=== PATIENT | male | born 1960 | race Caucasian/White ===

== ENCOUNTER 2018-07-14 02:50 | Inpatient (IN) | payer MEDICARE, MEDICAID ==
[2018-07-14] MEDS ORDERED: IPRATROPIUM/ALBUTEROL 0.5-2.5 MG/3 ML AMPUL NEB ONE ×3 (02:58)
--- NOTE | 2018-07-14 03:07 | ER Document Report ---
ED Respiratory Problem - General Stated Complaint: RESPIRATORY DISTRESS Time Seen by Provider: 07/14/18 02:58 Notes: Patient is a 58-year-old male that comes to the emergency department for chief complaint of difficulty breathing, he comes by EMS, he was initially in respiratory distress with hypoxia with oxygen saturation of 93% on his home BiPAP and respiratory rate in the 40s, patient states that he has progressively worsened for the past 3 days with cough, feeling feverish. He continues to smoke intermittently, has a history of COPD, not on oxygen during the day. Remaining medical history GERD, anxiety/depression, denies CHF, [place], or diabetes. - Related Data Allergies/Adverse Reactions: No Known Drug Allergies Allergy (Verified 07/14/18 04:13) Past Medical History - General Information source: Patient - Social History Smoking Status: Current Some Day Smoker Frequency of alcohol use: None Drug Abuse: None Lives with: Spouse/Significant other Family History: Reviewed & Not Pertinent Pulmonary Medical History: Reports: Hx COPD GI Medical History: Reports: Hx Gastroesophageal Reflux Disease Psychiatric Medical History: Reports: Hx Anxiety, Hx Depression - Immunizations Hx Diphtheria, Pertussis, Tetanus Vaccination: Yes Review of Systems - Review of Systems Constitutional: No symptoms reported EENT: No symptoms reported Cardiovascular: See HPI Respiratory: See HPI Gastrointestinal: No symptoms reported Genitourinary: No symptoms reported Male Genitourinary: No symptoms reported Musculoskeletal: No symptoms reported Skin: No symptoms reported Hematologic/Lymphatic: No symptoms reported Neurological/Psychological: No symptoms reported Physical Exam - Vital signs Vitals: Resp BP Pulse Ox 26 H 146/92 H 98 07/14/18 02:55 07/14/18 02:55 07/14/18 02:55 - Notes Notes: GENERAL: Alert, anxious. Moderate distress. HEAD: Normocephalic, atraumatic. EYES: Pupils equal, round, and reactive to light. Extraocular movements intact. ENT: Oral mucosa moist, tongue midline. Unremarkable oral pharyngeal exam. NECK: Full range of motion. Supple. Trachea midline. LUNGS: Very decreased breath sounds with poor air movement bilaterally. Respiratory distress with exertional tachypnea. No cough, no rales, no rhonchi noted. Has difficulty completing sentences. HEART: Tachycardia, normal rhythm, no murmur noted ABDOMEN: Soft, non-tender. Non-distended. Bowel sounds present in all 4 quadrants. EXTREMITIES: Moves all 4 extremities spontaneously. No edema, normal radial and dorsalis pedis pulses bilaterally. No cyanosis. BACK: no cervical, thoracic, lumbar midline tenderness. NEUROLOGICAL: Alert and oriented x3. Normal speech. [cranial nerves II through XII grossly intact]. SKIN: Diaphoretic and pale Course - Re-evaluation Re-evalutation: Patient initially with respiratory distress with respiratory rate in the mid 30s , mild tachycardia, patient immediately placed on BiPAP, giving additional DuoNeb treatments, he has already received 2 g of magnesium, 125 mg of Solu- Medrol, and 3 DuoNeb treatments. He was also given 2 mg of Versed to help with anxiety. On BiPAP patient states that he actually feels much improved although he still reports shortness of breath. Dr. Valerio evaluated patient at bedside. 07/14/18 03:05 Patient still has mild tachypnea and accessory muscle use but his tachypnea has improved to 24. He is not hypoxic on BiPAP. Will continue to monitor. Patient reevaluated again, now he is not in any respiratory rate of 20, heart rate is now in the 90s, he does not have any tachypnea or signs of distress. He states he feels very much improved. Chest x-ray with no acute process. CBC unremarkable. Troponin is not elevated. Chemistry generally unremarkable. Venous blood gas showing high oxygen probably because he is receiving oxygen when this was drawn, shows respiratory acidosis with pH of 7.26 and CO2 of greater than 75. Discussed results with patient and relative who is not bedside. Discussed admission to the hospital for COPD exacerbation, respiratory acidosis with hypercarbia. They state agreement. Discussed with Dr. Borges, patient's primary provider, patient will be admitted to telemetry full admission. - Vital Signs Vital signs: Temp Pulse Resp BP Pulse Ox 18 125/92 H 97 07/14/18 06:31 07/14/18 06:31 07/14/18 06:31 - Laboratory Result Diagrams: 07/14/18 02:58 07/14/18 02:58 Laboratory results interpreted by me: 07/14/18 07/14/18 07/14/18 02:58 02:58 02:58 WBC 11.0 H Carbonic Acid 2.28 H ABG pH 7.26 L ABG pCO2 75.7 H* ABG pO2 168.1 H ABG HCO3 33.5 H ABG Total CO2 35.8 H ABG O2 Saturation 98.8 H BUN 6 L Glucose 135 H Critical Care Note - Critical Care Note Total time excluding time spent on procedures (mins): 35 - respiratory distress , hypoxia, acute respiratory failure Comments: Please allow 35 minutes of critical care time for evaluation and treatment of patient with respiratory distress, acute respiratory failure, multiple airway treatments. Time spent with interpretation of laboratory and imaging data, multiple re-evaluations, discussion with patient, significant other, and discussion with hospitalist for admission. Discharge - Discharge Clinical Impression: Acute respiratory distress, Hypoxia, COPD exacerbation Condition: Stable Disposition: ADMITTED INPATIENT Admitting Provider: [facility] Unit Admitted: Telemetry
--- NOTE | 2018-07-14 03:17 | RADIOLOGY REPORT (SQ) ---
EXAM DESCRIPTION: XR CHEST 1 VIEW COMPLETED DATE/TME: 07/14/2018 00:00 CLINICAL HISTORY: RESP DISTRESS COMPARISON: 04/10/2018 FINDINGS: Single frontal view of the chest. The cardiomediastinal silhouette has normal size and contour. Hyperinflation with chronic stable interstitial opacities in the lung bases. No displaced rib fractures identified. Upper abdominal soft tissues are unremarkable. IMPRESSION: 1. No acute pulmonary process identified. 2. Hyperinflation suggests obstructive lung disease.
[2018-07-14 03:22] LABS: ABSOLUTE BASOPHILS # (AUTO) 0.1 10^3/uL (0.0-0.2); ABSOLUTE EOSINOPHILS # (AUTO) 0.3 10^3/uL (0.0-0.6); ABSOLUTE LYMPHOCYTES (AUTO) 2.6 10^3/uL (0.5-4.7); ABSOLUTE NEUT (AUTO) 6.9 10^3/uL (1.7-8.2); BASOPHILS % (AUTO) 0.9 % (0-2); EOSINOPHILS % (AUTO) 3.1 % (0-6); HEMATOCRIT 42.4 % (37.9-51.0); HEMOGLOBIN 14.3 g/dL (13.5-17.0); LYMPHOCYTES % (AUTO) 24.1 % (13-45); MEAN CORPUSCULAR HEMOGLOBIN 31.5 pg (27.0-33.4); MEAN CORPUSCULAR HGB CONC 33.8 g/dL (32.0-36.0); MEAN CORPUSCULAR VOLUME 93 fl (80-97); MONOCYTES % (AUTO) 9.4 % (3-13); PLATELET COUNT 263 10^3/uL (150-450); RED BLOOD COUNT 4.54 10^6/uL (4.35-5.55); RED CELL DISTRIBUTION WIDTH 13.6 % (11.5-14.0); SEGMENTED NEUTROPHILS % (AUTO) 62.5 % (42-78); TOTAL CELLS COUNTED % (AUTO) 100 %
[2018-07-14 03:52] LABS: ARTERIAL BLOOD BASE EXCESS 3.8 mmol/L; ARTERIAL BLOOD FIO2 35%; ARTERIAL BLOOD H2CO3 2.28 mmol/L (1.05-1.35); ARTERIAL BLOOD HCO3 33.5 mmol/L (20-24); ARTERIAL BLOOD O2 SATURATION 98.8 % (94-98); ARTERIAL BLOOD PH 7.26 (7.35-7.45); ARTERIAL BLOOD PO2 168.1 mmHg (80-100); ARTERIAL BLOOD TOTAL CO2 35.8 mmol/L (23-27)
[2018-07-14 03:53] LABS: ARTERIAL BLOOD PCO2 75.7 mmHg (35-45)
[2018-07-14 03:56] LABS: ALANINE AMINOTRANSFERASE 32 U/L (21-72); ALBUMIN 4.2 g/dL (3.5-5.0); ALKALINE PHOSPHATASE 82 U/L (38-126); ANION GAP 10 (5-19); ASPARTATE AMINO TRANSFERASE 27 U/L (17-59); BILIRUBIN,DIRECT 0.3 mg/dL (0.0-0.4); BILIRUBIN,TOTAL 0.4 mg/dL (0.2-1.3); BLOOD UREA NITROGEN 6 mg/dL (7-20); CALCIUM 9.6 mg/dL (8.4-10.2); CARBON DIOXIDE 30 mmol/L (22-30); CHLORIDE 104 mmol/L (98-107); CREATINE KINASE 86 U/L (55-170); GLUCOSE 135 mg/dL (75-110); POTASSIUM 4.2 mmol/L (3.6-5.0); SODIUM 144.3 mmol/L (137-145); TOTAL PROTEIN 7.2 g/dL (6.3-8.2)
[2018-07-14 04:40] LABS: CREATINE KINASE MB 3.29 ng/mL (<4.55)
[2018-07-14 04:45] LABS: TROPONIN I < 0.012 ng/mL
[2018-07-14] MEDS ORDERED: IPRATROPIUM/ALBUTEROL 0.5-2.5 MG/3 ML AMPUL NEB PRN (07:33)
[2018-07-14] MEDS ORDERED: METHYLPREDNISOLONE INJ 125 MG/2 ML SDV IV SCH (07:45)
[2018-07-14 09:51] LABS: INTERNATIONAL RATION (INR) 0.98; PROTHROMBIN TIME 13.5 SEC (11.4-15.4)
[2018-07-14 09:52] LABS: PARTIAL THROMBOPLASTIN TIME 30.5 SEC (23.5-35.8)
[2018-07-14 10:12] LABS: LIPASE 57.7 U/L (23-300); PHOSPHORUS 4.1 mg/dL (2.5-4.5)
[2018-07-14 10:25] LABS: CREATINE KINASE MB 3.61 ng/mL (<4.55)
[2018-07-14 10:27] LABS: FREE T4 (FREE THYROXINE) 1.34 ng/dL (0.78-2.19)
[2018-07-14 10:30] LABS: TROPONIN I < 0.012 ng/mL
[2018-07-14 10:41] LABS: THYROID STIMULATING HORMONE 0.38 uIU/mL (0.47-4.68)
[2018-07-14] MEDS: METHYLPREDNISOLONE INJ 125 MG/2 ML SDV IV SCH ×2 (10:52→17:33)
[2018-07-14] MEDS: ENOXAPARIN SODIUM INJ 40 MG/0.4 ML DISP.SYRIN SUBCUT SCH (10:54)
[2018-07-14 12:41] LABS: ARTERIAL BLOOD BASE EXCESS 5.5 mmol/L; ARTERIAL BLOOD FIO2 35%; ARTERIAL BLOOD H2CO3 1.74 mmol/L (1.05-1.35); ARTERIAL BLOOD HCO3 32.6 mmol/L (20-24); ARTERIAL BLOOD PCO2 57.8 mmHg (35-45); ARTERIAL BLOOD PH 7.37 (7.35-7.45); ARTERIAL BLOOD PO2 114.3 mmHg (80-100); ARTERIAL BLOOD TOTAL CO2 34.4 mmol/L (23-27)
--- NOTE | 2018-07-14 13:48 | EKG REPORT ---
SEVERITY:- ABNORMAL ECG - SINUS TACHYCARDIA RIGHT AXIS DEVIATION BORDERLINE INFERIOR Q WAVES ABNRM R PROG, CONSIDER ASMI OR LEAD PLACEMENT : Confirmed by: José Laurent MD 14-Jul-2018 13:47:50
--- NOTE | 2018-07-14 14:23 | PDOC H&P ---
History of Present Illness Admission Date/PCP: 07/14/18 05:19 BERNARD MEDINA MD History of Present Illness: JUAN RAMON RIOS is a 58 year old male, he has end-stage COPD, on oxygen he came to the emergency room for evaluation of respiratory distress, he was evaluated in the emergency room, treated with noninvasive positive pressure ventilation BiPAP, bronchodilators with DuoNeb the ABG on FiO2 35%, pH 7.2 cc PCO2 75.7 PO2 was 68.1, bicarb 33, consistent with severe respiratory acidosis. Last hospital admission was on 04/06/2018 when he was admitted for COPD with acute exacerbation associated with acute respiratory failure. He also have a history of Hampton's esophagus,he stated he has stopped smoking though from the ER record, it was stated that he still smokes intermittently. Past Medical History Pulmonary Medical History: Reports: Chronic Obstructive Pulmonary Disease (COPD) GI Medical History: Reports: Gastroesophageal Reflux Disease, Other - Hampton's esophagus with dysplasia Psychiatric Medical History: Reports: Depression Social History Lives with: Spouse/Significant other Smoking Status: Current Some Day Smoker - Advance Directive Resuscitation Status: Full Code Family History Family History: Reviewed & Not Pertinent Parental Family History Reviewed: Yes Children Family History Reviewed: Yes Sibling(s) Family History Reviewed.: Yes Medication/Allergy Home Medications: Brexpiprazole [Rexulti] 2 mg PO DAILY 07/14/18 Esomeprazole Magnesium [Nexium] 40 mg PO BID 07/14/18 Fluticasone/Umeclidin/Vilanter [Trelegy 100-62.5-25 Mcg Ellipta 14 Dose/Dpi] 1 inh PO DAILY 07/14/18 Gabapentin [Neurontin 300 mg Capsule] 300 mg PO Q6 07/14/18 Hydroxyzine HCl [Atarax 10 mg Tablet] 10 mg PO Q8HP PRN 07/14/18 Loratadine [Claritin 10 mg Tablet] 10 mg PO DAILY 07/14/18 Pantoprazole Sodium [Protonix] 40 mg PO DAILY 07/14/18 Roflumilast [Daliresp 500 mcg Tablet] 500 mcg PO DAILY 07/14/18 Venlafaxine HCl ER [Effexor Xr 75 mg Cap.sr] 150 mg PO Q12 07/14/18 Allergies/Adverse Reactions: No Known Drug Allergies Allergy (Verified 07/14/18 04:13) Review of Systems Constitutional: PRESENT: fatigue Eyes: ABSENT: visual disturbances Ears: ABSENT: hearing changes Cardiovascular: PRESENT: dyspnea on exertion. ABSENT: as per HPI, chest pain, edema, orthropnea, palpitations, other Respiratory: PRESENT: cough, dyspnea Gastrointestinal: ABSENT: abdominal pain, constipation, diarrhea, hematemesis, hematochezia, nausea, vomiting Genitourinary: ABSENT: dysuria, hematuria Musculoskeletal: ABSENT: joint swelling Integumentary: ABSENT: rash, wounds Neurological: ABSENT: abnormal gait, abnormal speech, confusion, dizziness, focal weakness, syncope Psychiatric: ABSENT: anxiety, depression, homidical ideation, suicidal ideation Endocrine: ABSENT: cold intolerance, heat intolerance, menstrual abnormalities, polydipsia, polyuria Hematologic/Lymphatic: ABSENT: easy bleeding, easy bruising, lymphadenopathy Physical Exam Vital Signs: Temp Pulse Resp BP Pulse Ox 97.5 F 74 16 118/78 98 07/14/18 08:23 07/14/18 13:00 07/14/18 13:00 07/14/18 12:01 07/14/18 13:00 Intake & Output 07/13/18 07/14/18 07/15/18 06:59 06:59 06:59 Weight 68.3 kg General appearance: PRESENT: severe distress Head exam: PRESENT: atraumatic, normocephalic Eye exam: PRESENT: conjunctiva pink, EOMI, PERRLA Ear exam: PRESENT: normal external ear exam Mouth exam: PRESENT: moist, tongue midline Respiratory exam: PRESENT: wheezes Cardiovascular exam: PRESENT: RRR, +S1, +S2 Vascular exam: PRESENT: normal capillary refill GI/Abdominal exam: PRESENT: normal bowel sounds, soft Rectal exam: PRESENT: deferred Neurological exam: PRESENT: alert, awake, oriented to person, oriented to place , oriented to time, oriented to situation, CN II-XII grossly intact Psychiatric exam: PRESENT: appropriate affect, normal mood Skin exam: PRESENT: dry, intact, warm Results Laboratory Results: 07/14/18 07/14/18 07/14/18 09:25 09:25 10:00 Carbonic Acid HCO3/H2CO3 Ratio ABG pH ABG pCO2 ABG pO2 ABG HCO3 ABG O2 Saturation ABG Base Excess FiO2 Phosphorus 4.1 Magnesium 2.6 H Ammonia 29.7 Amylase 55 Lipase 57.7 TSH 0.38 L Free T4 1.34 07/14/18 11:30 Carbonic Acid 1.74 H HCO3/H2CO3 Ratio 18:1 ABG pH 7.37 ABG pCO2 57.8 H ABG pO2 114.3 H ABG HCO3 32.6 H ABG O2 Saturation 98.0 ABG Base Excess 5.5 FiO2 35% Phosphorus Magnesium Ammonia Amylase Lipase TSH Free T4 07/14/18 07/14/18 07/14/18 09:25 09:25 09:25 Creatine Kinase 102 CK-MB (CK-2) 3.61 Troponin I < 0.012 NT-Pro-B Natriuret Pep 52 Impressions: Chest X-Ray 07/14/18 00:00 IMPRESSION: 1. No acute pulmonary process identified. 2. Hyperinflation suggests obstructive lung disease. Assessment & Plan - Diagnosis (1) Acute hypercapnic respiratory failure Is this a current diagnosis for this admission?: Yes Plan: Continue bilevel noninvasive positive pressure ventilation, initial settings in the chart (2) COPD exacerbation Is this a current diagnosis for this admission?: Yes Plan: , Chest x-ray did not show any pneumonia or infiltrates, treated with IV Solu- Medrol, bronchodilators
[2018-07-14 14:44] LABS: CREATINE KINASE MB 4.22 ng/mL (<4.55)
[2018-07-14 14:46] LABS: TROPONIN I < 0.012 ng/mL
[2018-07-14 20:17] LABS: CREATINE KINASE MB 4.31 ng/mL (<4.55)
[2018-07-14 20:19] LABS: TROPONIN I < 0.012 ng/mL
[2018-07-15] MEDS: METHYLPREDNISOLONE INJ 125 MG/2 ML SDV IV SCH ×3 (02:27→17:42)
[2018-07-15 09:24] LABS: ABSOLUTE LYMPHOCYTES (AUTO) 0.9 10^3/uL (0.5-4.7); ABSOLUTE MONOCYTES (AUTO) 0.2 10^3/uL (0.1-1.4); ABSOLUTE NEUT (AUTO) 7.3 10^3/uL (1.7-8.2); BASOPHILS % (AUTO) 0.3 % (0-2); HEMATOCRIT 43.8 % (37.9-51.0); HEMOGLOBIN 14.7 g/dL (13.5-17.0); LYMPHOCYTES % (AUTO) 10.6 % (13-45); MEAN CORPUSCULAR HEMOGLOBIN 31.1 pg (27.0-33.4); MEAN CORPUSCULAR HGB CONC 33.6 g/dL (32.0-36.0); MEAN CORPUSCULAR VOLUME 93 fl (80-97); MONOCYTES % (AUTO) 2.2 % (3-13); PLATELET COUNT 259 10^3/uL (150-450); RED BLOOD COUNT 4.73 10^6/uL (4.35-5.55); RED CELL DISTRIBUTION WIDTH 13.7 % (11.5-14.0); SEGMENTED NEUTROPHILS % (AUTO) 86.9 % (42-78); TOTAL CELLS COUNTED % (AUTO) 100 %; WHITE BLOOD COUNT 8.4 10^3/uL (4.0-10.5)
[2018-07-15 09:30] LABS: ALANINE AMINOTRANSFERASE 27 U/L (21-72); ALBUMIN 3.9 g/dL (3.5-5.0); ALKALINE PHOSPHATASE 69 U/L (38-126); ANION GAP 7 (5-19); ASPARTATE AMINO TRANSFERASE 22 U/L (17-59); BILIRUBIN,DIRECT 0.4 mg/dL (0.0-0.4); BILIRUBIN,TOTAL 0.6 mg/dL (0.2-1.3); BLOOD UREA NITROGEN 15 mg/dL (7-20); CALCIUM 9.9 mg/dL (8.4-10.2); CARBON DIOXIDE 32 mmol/L (22-30); CHLORIDE 102 mmol/L (98-107); CHOLESTEROL 208.01 mg/dL (0-200); DIRECT LDL 116 mg/dL (<100); GLUCOSE 120 mg/dL (75-110); POTASSIUM 5.3 mmol/L (3.6-5.0); SODIUM 141.4 mmol/L (137-145); TOTAL PROTEIN 6.6 g/dL (6.3-8.2); TRIGLYCERIDES 114 mg/dL (<150); VLDL CHOLESTEROL 22.8 mg/dL (10-31)
[2018-07-15] MEDS: ENOXAPARIN SODIUM INJ 40 MG/0.4 ML DISP.SYRIN SUBCUT SCH (10:03)
[2018-07-15] MEDS ORDERED: HYDROXYZINE HCL 10 MG TABLET PO PRN (13:59)
[2018-07-15] MEDS: VENLAFAXINE HCL 75 MG CAP.SR.24H PO ONE ×2 (14:55→14:58)
[2018-07-15] MEDS: LANSOPRAZOLE 30 MG TAB.RAP.DR PO SCH (17:41)
[2018-07-15] MEDS: GABAPENTIN 300 MG CAPSULE PO SCH ×2 (17:41→23:02)
[2018-07-15] MEDS: BREXPIPRAZOLE 2 MG PO SCH (17:50)
--- NOTE | 2018-07-15 22:17 | PDOC PROGRESS REPORT ---
Subjective Progress Note for:: 07/15/18 Subjective:: Patient is seen by the bedside,, he improved somewhat Reason For Visit: ACUTE RESPIRATORY ACIDOSIS DUE TO ACUTE COPD Physical Exam Vital Signs: Temp Pulse Resp BP Pulse Ox 97.4 F 73 16 114/59 L 98 07/15/18 16:00 07/15/18 19:36 07/15/18 20:15 07/15/18 19:36 07/15/18 20:15 Intake & Output 07/14/18 07/15/18 07/16/18 06:59 06:59 06:59 Intake Total 0 50 Output Total 400 1375 Balance -400 -1325 Weight 68.3 kg General appearance: PRESENT: mild distress Eye exam: PRESENT: PERRLA Respiratory exam: PRESENT: wheezes Cardiovascular exam: PRESENT: +S1, +S2 GI/Abdominal exam: PRESENT: soft Neurological exam: PRESENT: alert Results Laboratory Results: 07/15/18 05:31 07/15/18 05:31 07/15/18 07/15/18 05:31 05:31 WBC 8.4 RBC 4.73 Hgb 14.7 Hct 43.8 MCV 93 MCH 31.1 MCHC 33.6 RDW 13.7 Plt Count 259 Seg Neutrophils % 86.9 H Lymphocytes % 10.6 L Monocytes % 2.2 L Eosinophils % 0.0 Basophils % 0.3 Absolute Neutrophils 7.3 Absolute Lymphocytes 0.9 Absolute Monocytes 0.2 Absolute Eosinophils 0.0 Absolute Basophils 0.0 Sodium 141.4 Potassium 5.3 H Chloride 102 Carbon Dioxide 32 H Anion Gap 7 BUN 15 Creatinine 0.67 Est GFR ( Amer) > 60 Est GFR (Non-Af Amer) > 60 Glucose 120 H Calcium 9.9 Total Bilirubin 0.6 AST 22 ALT 27 Alkaline Phosphatase 69 Total Protein 6.6 Albumin 3.9 Triglycerides 114 Cholesterol 208.01 H LDL Cholesterol Direct 116 H VLDL Cholesterol 22.8 HDL Cholesterol 60 07/14/18 07/14/18 07/14/18 09:25 09:25 09:25 Creatine Kinase 102 CK-MB (CK-2) 3.61 Troponin I < 0.012 NT-Pro-B Natriuret Pep 52 07/14/18 07/14/18 07/14/18 13:59 13:59 19:44 Creatine Kinase 108 102 CK-MB (CK-2) 4.22 Troponin I < 0.012 NT-Pro-B Natriuret Pep 07/14/18 19:44 Creatine Kinase CK-MB (CK-2) 4.31 Troponin I < 0.012 NT-Pro-B Natriuret Pep Impressions: Chest X-Ray 07/14/18 00:00 IMPRESSION: 1. No acute pulmonary process identified. 2. Hyperinflation suggests obstructive lung disease. Assessment & Plan - Diagnosis (1) Acute hypercapnic respiratory failure Is this a current diagnosis for this admission?: Yes Plan: Patient continues to require noninvasive positive pressure ventilation (2) COPD exacerbation Is this a current diagnosis for this admission?: Yes Plan: Continue Solu-Medrol, continue bronchodilators
[2018-07-15] MEDS: VENLAFAXINE HCL 75 MG CAP.SR.24H PO SCH (22:38)
[2018-07-15] MEDS: NICOTINE 21 MG/24 HR PATCH.TD24 TD SCH (22:45)
[2018-07-16] MEDS: METHYLPREDNISOLONE INJ 125 MG/2 ML SDV IV SCH ×3 (01:43→17:57)
[2018-07-16 05:13] LABS: ABSOLUTE LYMPHOCYTES (AUTO) 0.7 10^3/uL (0.5-4.7); ABSOLUTE MONOCYTES (AUTO) 0.3 10^3/uL (0.1-1.4); BASOPHILS % (AUTO) 0.1 % (0-2); HEMATOCRIT 40.4 % (37.9-51.0); HEMOGLOBIN 13.8 g/dL (13.5-17.0); LYMPHOCYTES % (AUTO) 8.3 % (13-45); MEAN CORPUSCULAR HEMOGLOBIN 31.5 pg (27.0-33.4); MEAN CORPUSCULAR VOLUME 93 fl (80-97); PLATELET COUNT 285 10^3/uL (150-450); RED BLOOD COUNT 4.37 10^6/uL (4.35-5.55); RED CELL DISTRIBUTION WIDTH 13.6 % (11.5-14.0); SEGMENTED NEUTROPHILS % (AUTO) 88.6 % (42-78); TOTAL CELLS COUNTED % (AUTO) 100 %
[2018-07-16] MEDS: GABAPENTIN 300 MG CAPSULE PO SCH ×3 (05:26→17:55)
[2018-07-16 05:34] LABS: ALANINE AMINOTRANSFERASE 20 U/L (21-72); ALBUMIN 3.9 g/dL (3.5-5.0); ALKALINE PHOSPHATASE 64 U/L (38-126); ANION GAP 8 (5-19); ASPARTATE AMINO TRANSFERASE 24 U/L (17-59); BILIRUBIN,DIRECT 0.3 mg/dL (0.0-0.4); BILIRUBIN,TOTAL 0.5 mg/dL (0.2-1.3); BLOOD UREA NITROGEN 21 mg/dL (7-20); CALCIUM 9.7 mg/dL (8.4-10.2); CARBON DIOXIDE 32 mmol/L (22-30); CHLORIDE 101 mmol/L (98-107); GLUCOSE 123 mg/dL (75-110); POTASSIUM 4.9 mmol/L (3.6-5.0); SODIUM 140.5 mmol/L (137-145); TOTAL PROTEIN 6.5 g/dL (6.3-8.2)
[2018-07-16] MEDS: ENOXAPARIN SODIUM INJ 40 MG/0.4 ML DISP.SYRIN SUBCUT SCH (09:21)
[2018-07-16] MEDS: ROFLUMILAST 500 MCG TABLET PO SCH (09:23)
[2018-07-16] MEDS: LANSOPRAZOLE 30 MG TAB.RAP.DR PO SCH ×2 (09:23→16:46)
[2018-07-16] MEDS: LORATADINE 10 MG TABLET PO SCH (09:23)
[2018-07-16] MEDS: VENLAFAXINE HCL 75 MG CAP.SR.24H PO SCH ×2 (09:23→21:01)
[2018-07-16] MEDS: FLUTICASONE/UMECLIDIN/VILANTER 100-62.5-25 MCG/DOSE IH SCH (09:24)
[2018-07-16] MEDS: BREXPIPRAZOLE 2 MG PO SCH (09:25)
[2018-07-16] MEDS: NICOTINE 21 MG/24 HR PATCH.TD24 TD SCH (09:28)
[2018-07-16] MEDS ORDERED: (PENDING PHARMACY ID) (Brexpiprazole [Rexulti] 2 MG) PO SCH (10:00)
[2018-07-16] MEDS ORDERED: (PENDING PHARMACY ID) (Roflumilast [Daliresp 500 Mcg Tablet] 500 MCG) PO SCH (10:00)
--- NOTE | 2018-07-16 21:03 | PDOC PROGRESS REPORT ---
Subjective Progress Note for:: 07/16/18 Subjective:: Patient complained of fatigue, there is improvement in shortness of breath Reason For Visit: ACUTE RESPIRATORY ACIDOSIS DUE TO ACUTE COPD Physical Exam Vital Signs: Temp Pulse Resp BP Pulse Ox 97.6 F 73 14 93/76 L 98 07/16/18 19:09 07/16/18 20:44 07/16/18 19:09 07/16/18 19:09 07/16/18 19:09 Intake & Output 07/15/18 07/16/18 07/17/18 06:59 06:59 06:59 Intake Total 0 50 1599 Output Total 400 2225 400 Balance -400 -2175 1199 Weight 68.3 kg General appearance: PRESENT: no acute distress Eye exam: PRESENT: PERRLA Respiratory exam: PRESENT: wheezes Cardiovascular exam: PRESENT: +S1, +S2 GI/Abdominal exam: PRESENT: soft Neurological exam: PRESENT: alert Results Laboratory Results: 07/16/18 04:41 07/16/18 04:41 07/16/18 07/16/18 04:41 04:41 WBC 9.0 RBC 4.37 Hgb 13.8 Hct 40.4 MCV 93 MCH 31.5 MCHC 34.0 RDW 13.6 Plt Count 285 Seg Neutrophils % 88.6 H Lymphocytes % 8.3 L Monocytes % 3.0 Eosinophils % 0.0 Basophils % 0.1 Absolute Neutrophils 8.0 Absolute Lymphocytes 0.7 Absolute Monocytes 0.3 Absolute Eosinophils 0.0 Absolute Basophils 0.0 Sodium 140.5 Potassium 4.9 Chloride 101 Carbon Dioxide 32 H Anion Gap 8 BUN 21 H Creatinine 0.69 Est GFR ( Amer) > 60 Est GFR (Non-Af Amer) > 60 Glucose 123 H Calcium 9.7 Total Bilirubin 0.5 AST 24 ALT 20 L Alkaline Phosphatase 64 Total Protein 6.5 Albumin 3.9 07/14/18 07/14/18 07/14/18 09:25 09:25 09:25 Creatine Kinase 102 CK-MB (CK-2) 3.61 Troponin I < 0.012 NT-Pro-B Natriuret Pep 52 07/14/18 07/14/18 07/14/18 13:59 13:59 19:44 Creatine Kinase 108 102 CK-MB (CK-2) 4.22 Troponin I < 0.012 NT-Pro-B Natriuret Pep 07/14/18 19:44 Creatine Kinase CK-MB (CK-2) 4.31 Troponin I < 0.012 NT-Pro-B Natriuret Pep Impressions: Chest X-Ray 07/14/18 00:00 IMPRESSION: 1. No acute pulmonary process identified. 2. Hyperinflation suggests obstructive lung disease. Assessment & Plan - Diagnosis (1) Acute hypercapnic respiratory failure Is this a current diagnosis for this admission?: Yes (2) COPD exacerbation Is this a current diagnosis for this admission?: Yes - Plan Summary Plan Summary: Continue treatment
[2018-07-17] MEDS: GABAPENTIN 300 MG CAPSULE PO SCH ×4 (00:56→18:32)
[2018-07-17] MEDS: METHYLPREDNISOLONE INJ 125 MG/2 ML SDV IV SCH ×2 (01:32→10:07)
[2018-07-17 06:00] LABS: ABSOLUTE LYMPHOCYTES (AUTO) 0.7 10^3/uL (0.5-4.7); ABSOLUTE MONOCYTES (AUTO) 0.4 10^3/uL (0.1-1.4); ABSOLUTE NEUT (AUTO) 8.1 10^3/uL (1.7-8.2); HEMATOCRIT 40.6 % (37.9-51.0); HEMOGLOBIN 13.9 g/dL (13.5-17.0); LYMPHOCYTES % (AUTO) 7.3 % (13-45); MEAN CORPUSCULAR HEMOGLOBIN 31.5 pg (27.0-33.4); MEAN CORPUSCULAR HGB CONC 34.3 g/dL (32.0-36.0); MEAN CORPUSCULAR VOLUME 92 fl (80-97); PLATELET COUNT 272 10^3/uL (150-450); RED BLOOD COUNT 4.43 10^6/uL (4.35-5.55); RED CELL DISTRIBUTION WIDTH 13.1 % (11.5-14.0); SEGMENTED NEUTROPHILS % (AUTO) 88.7 % (42-78); TOTAL CELLS COUNTED % (AUTO) 100 %; WHITE BLOOD COUNT 9.1 10^3/uL (4.0-10.5)
[2018-07-17 06:27] LABS: ALANINE AMINOTRANSFERASE 32 U/L (21-72); ALBUMIN 3.5 g/dL (3.5-5.0); ALKALINE PHOSPHATASE 54 U/L (38-126); ANION GAP 8 (5-19); ASPARTATE AMINO TRANSFERASE 26 U/L (17-59); BILIRUBIN,DIRECT 0.3 mg/dL (0.0-0.4); BILIRUBIN,TOTAL 0.4 mg/dL (0.2-1.3); BLOOD UREA NITROGEN 21 mg/dL (7-20); CARBON DIOXIDE 29 mmol/L (22-30); CHLORIDE 101 mmol/L (98-107); GLUCOSE 128 mg/dL (75-110); POTASSIUM 4.8 mmol/L (3.6-5.0); SODIUM 137.9 mmol/L (137-145); TOTAL PROTEIN 6.1 g/dL (6.3-8.2)
[2018-07-17] MEDS: ROFLUMILAST 500 MCG TABLET PO SCH (10:05)
[2018-07-17] MEDS: LANSOPRAZOLE 30 MG TAB.RAP.DR PO SCH ×2 (10:05→17:39)
[2018-07-17] MEDS: NICOTINE 21 MG/24 HR PATCH.TD24 TD SCH (10:05)
[2018-07-17] MEDS: VENLAFAXINE HCL 75 MG CAP.SR.24H PO SCH ×2 (10:05→21:22)
[2018-07-17] MEDS: LORATADINE 10 MG TABLET PO SCH (10:05)
[2018-07-17] MEDS: ENOXAPARIN SODIUM INJ 40 MG/0.4 ML DISP.SYRIN SUBCUT SCH (10:06)
[2018-07-17] MEDS: BREXPIPRAZOLE 2 MG PO SCH (10:07)
[2018-07-17] MEDS: FLUTICASONE/UMECLIDIN/VILANTER 100-62.5-25 MCG/DOSE IH SCH (10:07)
--- NOTE | 2018-07-17 13:49 | PDOC PROGRESS REPORT ---
Subjective Progress Note for:: 07/17/18 Subjective:: Patient was seen by the bedside, he complained of fatigue, he is no longer requiring noninvasive positive pressure ventilation, BiPAP Reason For Visit: ACUTE RESPIRATORY ACIDOSIS DUE TO ACUTE COPD Physical Exam Vital Signs: Temp Pulse Resp BP Pulse Ox 98 F 64 14 117/70 100 07/17/18 04:09 07/17/18 07:00 07/17/18 08:00 07/17/18 04:09 07/17/18 08:00 Intake & Output 07/16/18 07/17/18 07/18/18 06:59 06:59 06:59 Intake Total 50 1599 Output Total 2225 500 Balance -2175 1099 Weight 67.5 kg General appearance: PRESENT: no acute distress Head exam: PRESENT: atraumatic, normocephalic Eye exam: PRESENT: PERRLA Neck exam: PRESENT: full ROM Respiratory exam: PRESENT: rhonchi Cardiovascular exam: PRESENT: RRR, +S1, +S2 Pulses: PRESENT: normal dorsalis pedis pul, +2 pedal pulses bilateral Vascular exam: PRESENT: normal capillary refill GI/Abdominal exam: PRESENT: normal bowel sounds, soft Rectal exam: PRESENT: deferred Neurological exam: PRESENT: alert, awake, oriented to person, oriented to place , oriented to time, oriented to situation, CN II-XII grossly intact Psychiatric exam: PRESENT: appropriate affect, normal mood Skin exam: PRESENT: dry, intact, warm Results Laboratory Results: 07/17/18 05:23 07/17/18 05:23 07/17/18 07/17/18 05:23 05:23 WBC 9.1 RBC 4.43 Hgb 13.9 Hct 40.6 MCV 92 MCH 31.5 MCHC 34.3 RDW 13.1 Plt Count 272 Seg Neutrophils % 88.7 H Lymphocytes % 7.3 L Monocytes % 4.0 Eosinophils % 0.0 Basophils % 0.0 Absolute Neutrophils 8.1 Absolute Lymphocytes 0.7 Absolute Monocytes 0.4 Absolute Eosinophils 0.0 Absolute Basophils 0.0 Sodium 137.9 Potassium 4.8 Chloride 101 Carbon Dioxide 29 Anion Gap 8 BUN 21 H Creatinine 0.71 Est GFR ( Amer) > 60 Est GFR (Non-Af Amer) > 60 Glucose 128 H Calcium 9.0 Total Bilirubin 0.4 AST 26 ALT 32 Alkaline Phosphatase 54 Total Protein 6.1 L Albumin 3.5 09/05/18 09/05/18 09/05/18 09:25 09:25 09:25 Creatine Kinase 102 CK-MB (CK-2) 3.61 Troponin I < 0.012 NT-Pro-B Natriuret Pep 52 07/14/18 07/14/18 07/14/18 13:59 13:59 19:44 Creatine Kinase 108 102 CK-MB (CK-2) 4.22 Troponin I < 0.012 NT-Pro-B Natriuret Pep 07/14/18 19:44 Creatine Kinase CK-MB (CK-2) 4.31 Troponin I < 0.012 NT-Pro-B Natriuret Pep Impressions: Chest X-Ray 07/14/18 00:00 IMPRESSION: 1. No acute pulmonary process identified. 2. Hyperinflation suggests obstructive lung disease. Assessment & Plan - Diagnosis (1) Acute hypercapnic respiratory failure Is this a current diagnosis for this admission?: Yes (2) COPD exacerbation Is this a current diagnosis for this admission?: Yes Plan: Discontinue IV Solu-Medrol, start prednisone
[2018-07-17] MEDS: PREDNISONE 20 MG TABLET PO SCH (18:32)
[2018-07-18] MEDS: GABAPENTIN 300 MG CAPSULE PO SCH ×5 (00:17→23:56)
[2018-07-18] MEDS ORDERED: DEXTROSE 50%-WATER SYRINGE 25 GM/50 ML DOSE IV PRN (05:09)
[2018-07-18] MEDS ORDERED: INSULIN LISPRO 100 UNIT/ML 3 ML VIAL SUBCUT PRN (05:09)
[2018-07-18] MEDS ORDERED: DEXTROSE 40% GEL 15 GM TUBE X 2 PO PRN (05:09)
[2018-07-18] MEDS ORDERED: GLUCAGON,HUMAN RECOMB 1 MG INJ IM PRN (05:09)
[2018-07-18] MEDS ORDERED: DEXTROSE 50%-WATER SYRINGE 12.5 GM/25 ML DOSE IV PRN (05:09)
[2018-07-18] MEDS ORDERED: DEXTROSE 40% GEL 15 GM TUBE PO PRN (05:09)
[2018-07-18] MEDS: NICOTINE 21 MG/24 HR PATCH.TD24 TD SCH (10:41)
[2018-07-18] MEDS: BREXPIPRAZOLE 2 MG PO SCH (10:41)
[2018-07-18] MEDS: ENOXAPARIN SODIUM INJ 40 MG/0.4 ML DISP.SYRIN SUBCUT SCH (10:41)
[2018-07-18] MEDS: ROFLUMILAST 500 MCG TABLET PO SCH (10:42)
[2018-07-18] MEDS: LANSOPRAZOLE 30 MG TAB.RAP.DR PO SCH ×2 (10:42→17:42)
[2018-07-18] MEDS: VENLAFAXINE HCL 75 MG CAP.SR.24H PO SCH ×2 (10:42→21:24)
[2018-07-18] MEDS: LORATADINE 10 MG TABLET PO SCH (10:42)
[2018-07-18] MEDS: FLUTICASONE/UMECLIDIN/VILANTER 100-62.5-25 MCG/DOSE IH SCH (10:43)
--- NOTE | 2018-07-18 14:11 | PDOC DISCHARGE SUMMARY ---
General - Admit/Disc Date/PCP Admission Date/Primary Care Provider: 07/14/18 05:19 BERNARD MEDINA MD Discharge Date: 07/19/18 - Discharge Diagnosis (1) Acute hypercapnic respiratory failure Is this a current diagnosis for this admission?: Yes (2) COPD exacerbation Is this a current diagnosis for this admission?: Yes - Additional Information Resuscitation Status: Full Code Prescriptions: Prednisone [Deltasone 20 mg Tablet] 60 mg PO QPM #20 tablet Home Medications: Brexpiprazole [Rexulti] 2 mg PO DAILY 07/14/18 Fluticasone/Umeclidin/Vilanter [Trelegy 100-62.5-25 Mcg Ellipta 14 Dose/Dpi] 1 inh PO DAILY 07/14/18 Gabapentin [Neurontin 300 mg Capsule] 300 mg PO Q6 07/14/18 Hydroxyzine HCl [Atarax 10 mg Tablet] 10 mg PO Q8HP PRN 07/14/18 Loratadine [Claritin 10 mg Tablet] 10 mg PO DAILY 07/14/18 Pantoprazole Sodium [Protonix] 40 mg PO DAILY 07/14/18 Roflumilast [Daliresp 500 mcg Tablet] 500 mcg PO DAILY 07/14/18 Venlafaxine HCl ER [Effexor Xr 75 mg Cap.sr] 150 mg PO Q12 07/14/18 Prednisone [Deltasone 20 mg Tablet] 60 mg PO QPM #20 tablet 07/18/18 History of Present Illness History of Present Illness: JUAN RAMON RIOS is a 58 year old male, he has end-stage COPD, on oxygen he came to the emergency room for evaluation of respiratory distress, he was evaluated in the emergency room, treated with noninvasive positive pressure ventilation BiPAP, bronchodilators with DuoNeb the ABG on FiO2 35%, pH 7.2 cc PCO2 75.7 PO2 was 68.1, bicarb 33, consistent with severe respiratory acidosis. Last hospital admission was on 04/06/2018 when he was admitted for COPD with acute exacerbation associated with acute respiratory failure. He also have a history of Hampton's esophagus,he stated he has stopped smoking though from the ER record, it was stated that he still smokes intermittently. Hospital Course Hospital Course: Patient is a recalcitrant smoker, admitted for the management of acute hypercapnic respiratory failure due to COPD exacerbation. He was treated with noninvasive positive pressure ventilation BiPAP, IV Solu-Medrol, bronchodilators. He responded to treatment patient needs to stop smoking, that is the only effective way to prevent recurrent exacerbation. Presently on home oxygen, is also on daliresp Physical Exam Vital Signs: Temp Pulse Resp BP Pulse Ox 97.9 F 67 13 103/70 94 07/18/18 03:19 07/18/18 07:00 07/18/18 03:19 07/18/18 03:19 07/18/18 07:57 Intake & Output 07/17/18 07/18/18 07/19/18 06:59 06:59 06:59 Intake Total 1599 2755 Output Total 500 Balance 1099 2755 Weight 67.5 kg 65.2 kg General appearance: PRESENT: no acute distress, well-developed, well-nourished Head exam: PRESENT: atraumatic, normocephalic Eye exam: PRESENT: conjunctiva pink, EOMI, PERRLA Ear exam: PRESENT: normal external ear exam Mouth exam: PRESENT: moist, tongue midline Neck exam: PRESENT: full ROM Respiratory exam: PRESENT: clear to auscultation moy Cardiovascular exam: PRESENT: RRR, +S1, +S2 Pulses: PRESENT: normal dorsalis pedis pul, +2 pedal pulses bilateral Vascular exam: PRESENT: normal capillary refill GI/Abdominal exam: PRESENT: normal bowel sounds, soft Rectal exam: PRESENT: deferred Neurological exam: PRESENT: alert, awake, oriented to person, oriented to place , oriented to time, oriented to situation, CN II-XII grossly intact Psychiatric exam: PRESENT: appropriate affect, normal mood Skin exam: PRESENT: dry, intact, warm Results Laboratory Results: 07/17/18 05:23 07/17/18 05:23 07/14/18 07/14/18 07/14/18 09:25 09:25 09:25 Creatine Kinase 102 CK-MB (CK-2) 3.61 Troponin I < 0.012 NT-Pro-B Natriuret Pep 52 07/14/18 07/14/18 07/14/18 13:59 13:59 19:44 Creatine Kinase 108 102 CK-MB (CK-2) 4.22 Troponin I < 0.012 NT-Pro-B Natriuret Pep 07/14/18 19:44 Creatine Kinase CK-MB (CK-2) 4.31 Troponin I < 0.012 NT-Pro-B Natriuret Pep Impressions: Chest X-Ray 07/14/18 00:00 IMPRESSION: 1. No acute pulmonary process identified. 2. Hyperinflation suggests obstructive lung disease. Qualifiers - * PATIENT BEING DISCHARGED WITH ANY OF THE FOLLOWING DIAGNOSIS: No VTE patient discharged on overlapping Therapy?: Yes
[2018-07-18] MEDS: PREDNISONE 20 MG TABLET PO SCH (17:42)
[2018-07-19] MEDS: GABAPENTIN 300 MG CAPSULE PO SCH (05:38)
[2018-07-19] MEDS: BREXPIPRAZOLE 2 MG PO SCH (09:47)
[2018-07-19] MEDS: VENLAFAXINE HCL 75 MG CAP.SR.24H PO SCH (09:47)
[2018-07-19] MEDS: LANSOPRAZOLE 30 MG TAB.RAP.DR PO SCH (09:48)
[2018-07-19] MEDS: LORATADINE 10 MG TABLET PO SCH (09:48)
[2018-07-19] MEDS: ROFLUMILAST 500 MCG TABLET PO SCH (09:48)
[2018-07-19] MEDS: NICOTINE 21 MG/24 HR PATCH.TD24 TD SCH (09:48)
[2018-07-19] MEDS: ENOXAPARIN SODIUM INJ 40 MG/0.4 ML DISP.SYRIN SUBCUT SCH (09:48)
[2018-07-19] MEDS: FLUTICASONE/UMECLIDIN/VILANTER 100-62.5-25 MCG/DOSE IH SCH (09:49)
[2018-07-19 11:59] VITALS: BP 117/70
== END 2018-07-19 12:58 | disposition home or self-care (01) | DRG 189 ==
LOC: ER 02:50 → EH 05:19 → 3W 12:41
PROVIDERS: ADMIT Internal Medicine; ATTEND Internal Medicine
PROC: 5A09457 Assistance with Respiratory Ventilation, 24-96 Consecutive Hours, Continuous Positive Airway Pressure (ICD-10-PCS; principal; 2018-07-14)
DX: J96.02 Acute respiratory failure with hypercapnia (principal); J44.1 Chronic obstructive pulmonary disease with (acute) exacerbation; K21.9 Gastro-esophageal reflux disease without esophagitis; Z99.81 Dependence on supplemental oxygen; Z87.19 Personal history of other diseases of the digestive system; F17.200 Nicotine dependence, unspecified, uncomplicated
CPT/HCPCS: 36415; 36600; 71045; 80048; 80053; 80061; 80076; 82140; 82150; 82550; 82553; 82803; 82962; 83036; 83690; 83735; 83880; 84100; 84439; 84443; 84484; 85025; 85610; 85730; 87040; 93005; 93010; 94640; 94660; 99291; J1650; J2930; J3490; J7512; J7620

== ENCOUNTER 2018-08-02 09:58 | Inpatient (IN) | payer MEDICARE, MEDICAID ==
--- NOTE | 2018-08-02 11:28 | RADIOLOGY REPORT (SQ) ---
EXAM DESCRIPTION: CHEST 2 VIEWS COMPLETED DATE/TIME: 08/02/2018 10:50 am REASON FOR STUDY: resp COMPARISON: AP chest 07/14/2018 EXAM PARAMETERS: NUMBER OF VIEWS: two views TECHNIQUE: Digital Frontal and Lateral radiographic views of the chest acquired. RADIATION DOSE: NA LIMITATIONS: none FINDINGS: LUNGS AND PLEURA: Hyperinflated and hyperlucent from obstructive disease, end-stage appear ance. No acute infiltrates. No pleural effusion. No pneumothorax. MEDIASTINUM AND HILAR STRUCTURES: No masses or contour abnormalities. HEART AND VASCULAR STRUCTURES: Heart normal size. No evidence for failure. BONES: Osteoporotic. No acute findings. HARDWARE: None in the chest. OTHER: No other significant finding. IMPRESSION: Obstructive lung disease. No acute findings TECHNICAL DOCUMENTATION: JOB ID: [id number] [employer]- All Rights Reserved Reading location - IP/workstation name: [email or web address]
[2018-08-02] MEDS ORDERED: MAGNESIUM SULFATE/D5W 1 GM/100 ML RTUPB IV ONE (11:31)
[2018-08-02] MEDS ORDERED: IPRATROPIUM/ALBUTEROL 0.5-2.5 MG/3 ML AMPUL NEB ONE (11:31)
[2018-08-02] MEDS ORDERED: METHYLPREDNISOLONE INJ 125 MG/2 ML SDV IV ONE ×2 (11:31→22:15)
--- NOTE | 2018-08-02 11:48 | ER Document Report ---
ED Medical Screen (RME) - General Chief Complaint: Respiratory Distress Stated Complaint: SHORTNESS OF BREATH Time Seen by Provider: 08/02/18 11:30 TRAVEL OUTSIDE OF THE [place] IN LAST 30 DAYS: No - HPI Notes: 08/02/18 11:48 Short of breath - Related Data Allergies/Adverse Reactions: No Known Drug Allergies Allergy (Verified 08/02/18 10:04) Past Medical History - Social History Chew tobacco use (# tins/day): No Frequency of alcohol use: None Drug Abuse: None Pulmonary Medical History: Reports: Hx COPD Renal/ Medical History: Denies: Hx Peritoneal Dialysis GI Medical History: Reports: Hx Gastroesophageal Reflux Disease Psychiatric Medical History: Reports: Hx Anxiety, Hx Depression - Immunizations Hx Diphtheria, Pertussis, Tetanus Vaccination: Yes Review of Systems - Review of Systems Respiratory: Short of breath Physical Exam - Vital signs Vitals: Temp Pulse Resp BP Pulse Ox 97.5 F 96 26 H 142/83 H 94 08/02/18 10:03 08/02/18 10:03 08/02/18 10:03 08/02/18 10:03 08/02/18 10:03 - Respiratory Respiratory status: No respiratory distress Chest status: Nontender Breath sounds: Wheezing Chest palpation: Normal Course - Vital Signs Vital signs: Temp Pulse Resp BP Pulse Ox 97.5 F 96 26 H 142/83 H 94 08/02/18 10:03 08/02/18 10:03 08/02/18 10:03 08/02/18 10:03 08/02/18 10:03 Doctor's Discharge - Discharge Referrals: BERNARD MEDINA MD [Primary Care Provider] - Follow up as needed
[2018-08-02 12:33] LABS: VENOUS BLOOD BASE EXCESS 2.9 mmol/L; VENOUS BLOOD HCO3 31.5 mmol/L (20-32); VENOUS BLOOD PH 7.3 (7.30-7.42)
[2018-08-02 12:36] LABS: VENOUS BLOOD PCO2 65.1 mmHg (35-63)
[2018-08-02 12:38] LABS: HEMATOCRIT 44.9 % (37.9-51.0); HEMOGLOBIN 15.2 g/dL (13.5-17.0); MEAN CORPUSCULAR HEMOGLOBIN 31.4 pg (27.0-33.4); MEAN CORPUSCULAR VOLUME 92 fl (80-97); PLATELET COUNT 148 10^3/uL (150-450); RED BLOOD COUNT 4.86 10^6/uL (4.35-5.55); RED CELL DISTRIBUTION WIDTH 13.8 % (11.5-14.0); WHITE BLOOD COUNT 13.3 10^3/uL (4.0-10.5)
[2018-08-02 13:00] LABS: ALANINE AMINOTRANSFERASE 21 U/L (21-72); ALBUMIN 4.3 g/dL (3.5-5.0); ALKALINE PHOSPHATASE 74 U/L (38-126); ANION GAP 6 (5-19); ASPARTATE AMINO TRANSFERASE 24 U/L (17-59); BILIRUBIN,DIRECT 0.7 mg/dL (0.0-0.4); BILIRUBIN,TOTAL 0.8 mg/dL (0.2-1.3); BLOOD UREA NITROGEN 12 mg/dL (7-20); CALCIUM 9.6 mg/dL (8.4-10.2); CARBON DIOXIDE 36 mmol/L (22-30); CHLORIDE 102 mmol/L (98-107); GLUCOSE 104 mg/dL (75-110); POTASSIUM 3.7 mmol/L (3.6-5.0); TOTAL PROTEIN 7.8 g/dL (6.3-8.2)
[2018-08-02 13:07] LABS: ABSOLUTE LYMPHOCYTES# (MANUAL) 0.9 10^3/uL (0.5-4.7); ABSOLUTE MONOCYTES # (MANUAL) 0.5 10^3/uL (0.1-1.4); ABSOLUTE NEUTROPHILS# (MANUAL) 11.3 10^3/uL (1.7-8.2); BASOPHILS % (MANUAL) 0 % (0-2); EOSINOPHILS % (MANUAL) 4 % (0-6); HYPOCHROMASIA SLIGHT; LYMPHOCYTES % (MANUAL) 7 % (13-45); MONOCYTES % (MANUAL) 4 % (3-13); PLATELET CLUMPS PRESENT; SEGMENTED NEUTROPHILS % (MAN) 85 % (42-78); TOTAL CELLS COUNTED 100; TOXIC GRANULATION SLIGHT; TOXIC VACUOLATION PRESENT
[2018-08-02] MEDS ORDERED: MIDAZOLAM 2 MG/2 ML INJ IV ONE (14:18)
[2018-08-02 18:16] LABS: ARTERIAL BLOOD BASE EXCESS 4.1 mmol/L; ARTERIAL BLOOD H2CO3 1.46 mmol/L (1.05-1.35); ARTERIAL BLOOD HCO3 29.7 mmol/L (20-24); ARTERIAL BLOOD O2 SATURATION 97.7 % (94-98); ARTERIAL BLOOD PCO2 48.4 mmHg (35-45); ARTERIAL BLOOD PH 7.41 (7.35-7.45); ARTERIAL BLOOD PO2 102.8 mmHg (80-100); ARTERIAL BLOOD TOTAL CO2 31.2 mmol/L (23-27)
[2018-08-02 18:17] LABS: ARTERIAL BLOOD FIO2 30%
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
[2018-08-02] MEDS ORDERED: (PENDING PHARMACY ID) (Brexpiprazole [Rexulti] 2 MG) PO SCH (21:30)
[2018-08-02 22:33] LABS: LIPASE 20.8 U/L (23-300)
[2018-08-02] MEDS: IPRATROPIUM/ALBUTEROL 0.5-2.5 MG/3 ML AMPUL NEB SCH (22:33)
[2018-08-02] MEDS: VENLAFAXINE HCL 75 MG CAP.SR.24H PO SCH (22:33)
[2018-08-02] MEDS: MONTELUKAST SODIUM 10 MG TABLET PO SCH (22:33)
[2018-08-02 22:45] LABS: CREATINE KINASE MB 2.94 ng/mL (<4.55)
[2018-08-02 22:51] LABS: FREE T4 (FREE THYROXINE) 1.39 ng/dL (0.78-2.19)
[2018-08-02 22:54] LABS: TROPONIN I < 0.012 ng/mL
[2018-08-02 23:05] LABS: THYROID STIMULATING HORMONE 0.23 uIU/mL (0.47-4.68)
[2018-08-03] MEDS: GABAPENTIN 300 MG CAPSULE PO SCH ×4 (00:11→17:08)
[2018-08-03 01:01] LABS: URINE AMPHETAMINES SCREEN NEGATIVE; URINE BARBITURATES SCREEN NEGATIVE; URINE BENZODIAZEPINES SCREEN UNCONFIRMED POSITIVE; URINE COCAINE SCREEN NEGATIVE; URINE MARIJUANA (THC) SCREEN NEGATIVE; URINE METHADONE SCREEN NEGATIVE; URINE PHENCYCLIDINE SCREEN NEGATIVE
[2018-08-03 01:11] LABS: APPEARANCE,URINE SLIGHTLY-CLOUDY; BILIRUBIN,URINE NEGATIVE (NEGATIVE); COLOR,URINE AMBER; GLUCOSE, URINE NEGATIVE (NEGATIVE); KETONES,URINE 80 mg/dL (NEGATIVE); LEUKOCYTE ESTERASE,URINE NEGATIVE (NEGATIVE); NITRITE,URINE NEGATIVE (NEGATIVE); PROTEIN,URINE 30 mg/dL (NEGATIVE); URINE SPECIFIC GRAVITY 1.026
[2018-08-03] MEDS: IPRATROPIUM/ALBUTEROL 0.5-2.5 MG/3 ML AMPUL NEB SCH ×8 (02:51→23:52)
[2018-08-03 04:08] LABS: INTERNATIONAL RATION (INR) 1.02
[2018-08-03 04:09] LABS: ABSOLUTE LYMPHOCYTES (AUTO) 0.5 10^3/uL (0.5-4.7); ABSOLUTE MONOCYTES (AUTO) 0.2 10^3/uL (0.1-1.4); BASOPHILS % (AUTO) 0.5 % (0-2); EOSINOPHILS % (AUTO) 0.5 % (0-6); HEMATOCRIT 40.3 % (37.9-51.0); HEMOGLOBIN 13.8 g/dL (13.5-17.0); LYMPHOCYTES % (AUTO) 6.9 % (13-45); MEAN CORPUSCULAR HEMOGLOBIN 31.2 pg (27.0-33.4); MEAN CORPUSCULAR HGB CONC 34.3 g/dL (32.0-36.0); MEAN CORPUSCULAR VOLUME 91 fl (80-97); MONOCYTES % (AUTO) 2.2 % (3-13); PARTIAL THROMBOPLASTIN TIME 28.3 SEC (23.5-35.8); PLATELET COUNT 131 10^3/uL (150-450); RED BLOOD COUNT 4.42 10^6/uL (4.35-5.55); RED CELL DISTRIBUTION WIDTH 13.6 % (11.5-14.0); SEGMENTED NEUTROPHILS % (AUTO) 89.9 % (42-78); TOTAL CELLS COUNTED % (AUTO) 100 %; WHITE BLOOD COUNT 7.8 10^3/uL (4.0-10.5)
[2018-08-03 04:26] LABS: ALANINE AMINOTRANSFERASE 30 U/L (21-72); ALBUMIN 3.5 g/dL (3.5-5.0); ALKALINE PHOSPHATASE 60 U/L (38-126); ANION GAP 6 (5-19); ASPARTATE AMINO TRANSFERASE 16 U/L (17-59); BILIRUBIN,DIRECT 0.5 mg/dL (0.0-0.4); BILIRUBIN,TOTAL 0.8 mg/dL (0.2-1.3); BLOOD UREA NITROGEN 13 mg/dL (7-20); CALCIUM 9.2 mg/dL (8.4-10.2); CARBON DIOXIDE 30 mmol/L (22-30); CHLORIDE 102 mmol/L (98-107); CHOLESTEROL 201.87 mg/dL (0-200); GLUCOSE 123 mg/dL (75-110); POTASSIUM 4.5 mmol/L (3.6-5.0); SODIUM 138.3 mmol/L (137-145); TOTAL PROTEIN 6.1 g/dL (6.3-8.2); TRIGLYCERIDES 73 mg/dL (<150)
[2018-08-03 04:37] LABS: CREATINE KINASE MB 2.33 ng/mL (<4.55); DIRECT LDL 107 mg/dL (<100)
[2018-08-03 04:42] LABS: TROPONIN I < 0.012 ng/mL
[2018-08-03] MEDS: METHYLPREDNISOLONE INJ 125 MG/2 ML SDV IV SCH ×3 (06:06→21:44)
[2018-08-03] MEDS: ENOXAPARIN SODIUM INJ 40 MG/0.4 ML DISP.SYRIN SUBCUT SCH (09:57)
[2018-08-03] MEDS: FAMOTIDINE 20 MG TABLET PO SCH (10:21)
[2018-08-03] MEDS: ROFLUMILAST 500 MCG TABLET PO SCH (10:21)
[2018-08-03] MEDS: FLUTICASONE/UMECLIDIN/VILANTER 100-62.5-25 MCG/DOSE IH SCH (10:21)
[2018-08-03] MEDS: VENLAFAXINE HCL 75 MG CAP.SR.24H PO SCH ×2 (10:21→21:44)
[2018-08-03] MEDS: LORATADINE 10 MG TABLET PO SCH (10:21)
[2018-08-03] MEDS: LANSOPRAZOLE 30 MG TAB.RAP.DR PO SCH ×2 (10:21→17:08)
[2018-08-03 10:53] LABS: CREATINE KINASE MB 1.78 ng/mL (<4.55)
[2018-08-03 10:55] LABS: TROPONIN I < 0.012 ng/mL
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
[2018-08-03] MEDS: MONTELUKAST SODIUM 10 MG TABLET PO SCH (21:44)
[2018-08-04] MEDS: GABAPENTIN 300 MG CAPSULE PO SCH ×5 (00:35→23:02)
[2018-08-04] MEDS: IPRATROPIUM/ALBUTEROL 0.5-2.5 MG/3 ML AMPUL NEB SCH ×8 (02:22→23:49)
[2018-08-04 05:34] LABS: ABSOLUTE LYMPHOCYTES (AUTO) 0.6 10^3/uL (0.5-4.7); ABSOLUTE MONOCYTES (AUTO) 0.4 10^3/uL (0.1-1.4); ABSOLUTE NEUT (AUTO) 10.1 10^3/uL (1.7-8.2); BASOPHILS % (AUTO) 0.1 % (0-2); EOSINOPHILS % (AUTO) 0.1 % (0-6); HEMATOCRIT 39.2 % (37.9-51.0); HEMOGLOBIN 13.2 g/dL (13.5-17.0); LYMPHOCYTES % (AUTO) 5.5 % (13-45); MEAN CORPUSCULAR HEMOGLOBIN 30.8 pg (27.0-33.4); MEAN CORPUSCULAR HGB CONC 33.7 g/dL (32.0-36.0); MEAN CORPUSCULAR VOLUME 91 fl (80-97); MONOCYTES % (AUTO) 3.3 % (3-13); PLATELET COUNT 145 10^3/uL (150-450); RED CELL DISTRIBUTION WIDTH 13.4 % (11.5-14.0); TOTAL CELLS COUNTED % (AUTO) 100 %; WHITE BLOOD COUNT 11.1 10^3/uL (4.0-10.5)
[2018-08-04 05:37] LABS: INTERNATIONAL RATION (INR) 0.98; PROTHROMBIN TIME 13.5 SEC (11.4-15.4)
[2018-08-04] MEDS: METHYLPREDNISOLONE INJ 125 MG/2 ML SDV IV SCH ×3 (05:53→21:00)
[2018-08-04 05:55] LABS: ALANINE AMINOTRANSFERASE 34 U/L (21-72); ALBUMIN 3.4 g/dL (3.5-5.0); ALKALINE PHOSPHATASE 54 U/L (38-126); ANION GAP 8 (5-19); ASPARTATE AMINO TRANSFERASE 20 U/L (17-59); BILIRUBIN,DIRECT 0.3 mg/dL (0.0-0.4); BILIRUBIN,TOTAL 0.5 mg/dL (0.2-1.3); BLOOD UREA NITROGEN 18 mg/dL (7-20); CALCIUM 9.2 mg/dL (8.4-10.2); CARBON DIOXIDE 30 mmol/L (22-30); CHLORIDE 101 mmol/L (98-107); GLUCOSE 135 mg/dL (75-110); SODIUM 139.2 mmol/L (137-145)
[2018-08-04] MEDS: ROFLUMILAST 500 MCG TABLET PO SCH (10:11)
[2018-08-04] MEDS: VENLAFAXINE HCL 75 MG CAP.SR.24H PO SCH ×2 (10:11→21:00)
[2018-08-04] MEDS: LORATADINE 10 MG TABLET PO SCH (10:11)
[2018-08-04] MEDS: FAMOTIDINE 20 MG TABLET PO SCH (10:11)
[2018-08-04] MEDS: ENOXAPARIN SODIUM INJ 40 MG/0.4 ML DISP.SYRIN SUBCUT SCH (10:11)
[2018-08-04] MEDS: LANSOPRAZOLE 30 MG TAB.RAP.DR PO SCH ×2 (10:12→17:31)
[2018-08-04] MEDS: FLUTICASONE/UMECLIDIN/VILANTER 100-62.5-25 MCG/DOSE IH SCH (10:13)
[2018-08-04] MEDS ORDERED: ALBUTEROL SULFATE 0.083% NEB 2.5 MG/3 ML AMPUL NEB PRN (15:06)
--- NOTE | 2018-08-04 18:27 | PDOC PROGRESS REPORT ---
Subjective Progress Note for:: 08/04/18 Subjective:: Patient was seen by the bedside, the skin rash is improving on IV Solu-Medrol, the wheezing episode is improving Reason For Visit: ACUTE COPD EXACERBATION,END STAGE COPD,ACUTE ON Physical Exam Vital Signs: Temp Pulse Resp BP Pulse Ox 98.3 F 85 16 134/75 H 97 08/04/18 15:12 08/04/18 15:57 08/04/18 15:57 08/04/18 15:12 08/04/18 15:57 Intake & Output 08/03/18 08/04/18 08/05/18 06:59 06:59 06:59 Intake Total 702 844 Balance 702 844 Weight 63 kg General appearance: PRESENT: no acute distress Eye exam: PRESENT: PERRLA Respiratory exam: PRESENT: rhonchi, wheezes Cardiovascular exam: PRESENT: +S1, +S2 GI/Abdominal exam: PRESENT: soft Neurological exam: PRESENT: alert, CN II-XII grossly intact Results Laboratory Results: 08/04/18 04:41 08/04/18 04:41 08/04/18 08/04/18 04:41 04:41 WBC 11.1 H RBC 4.30 L Hgb 13.2 L Hct 39.2 MCV 91 MCH 30.8 MCHC 33.7 RDW 13.4 Plt Count 145 L Seg Neutrophils % 91.0 H Lymphocytes % 5.5 L Monocytes % 3.3 Eosinophils % 0.1 Basophils % 0.1 Absolute Neutrophils 10.1 H Absolute Lymphocytes 0.6 Absolute Monocytes 0.4 Absolute Eosinophils 0.0 Absolute Basophils 0.0 Sodium 139.2 Potassium 4.0 Chloride 101 Carbon Dioxide 30 Anion Gap 8 BUN 18 Creatinine 0.66 Est GFR ( Amer) > 60 Est GFR (Non-Af Amer) > 60 Glucose 135 H Calcium 9.2 Magnesium 2.2 Total Bilirubin 0.5 AST 20 ALT 34 Alkaline Phosphatase 54 Total Protein 6.0 L Albumin 3.4 L 08/02/18 08/02/18 08/03/18 22:00 22:00 03:50 Creatine Kinase 43 L 31 L CK-MB (CK-2) 2.94 Troponin I < 0.012 08/03/18 08/03/18 08/03/18 03:50 10:05 10:05 Creatine Kinase 26 L CK-MB (CK-2) 2.33 1.78 Troponin I < 0.012 < 0.012 Impressions: Chest X-Ray 08/02/18 00:00 IMPRESSION: Obstructive lung disease. No acute findings Assessment & Plan - Diagnosis (1) Acute hypercapnic respiratory failure Is this a current diagnosis for this admission?: Yes (2) COPD exacerbation Is this a current diagnosis for this admission?: Yes Plan: Continue IV Solu-Medrol, bronchodilators (3) Hypersensitivity reaction Qualifiers: Encounter type: initial encounter Qualified Code(s): T78.40XA - Allergy, unspecified, initial encounter Is this a current diagnosis for this admission?: Yes
[2018-08-04] MEDS: MONTELUKAST SODIUM 10 MG TABLET PO SCH (21:00)
[2018-08-05] MEDS: IPRATROPIUM/ALBUTEROL 0.5-2.5 MG/3 ML AMPUL NEB SCH ×5 (04:50→19:54)
[2018-08-05] MEDS: GABAPENTIN 300 MG CAPSULE PO SCH ×4 (05:26→23:46)
[2018-08-05] MEDS: METHYLPREDNISOLONE INJ 125 MG/2 ML SDV IV SCH ×2 (05:26→14:54)
[2018-08-05 05:44] LABS: ABSOLUTE LYMPHOCYTES (AUTO) 0.8 10^3/uL (0.5-4.7); ABSOLUTE MONOCYTES (AUTO) 0.5 10^3/uL (0.1-1.4); ABSOLUTE NEUT (AUTO) 9.6 10^3/uL (1.7-8.2); BASOPHILS % (AUTO) 0.2 % (0-2); EOSINOPHILS % (AUTO) 0.1 % (0-6); HEMATOCRIT 39.1 % (37.9-51.0); HEMOGLOBIN 13.4 g/dL (13.5-17.0); LYMPHOCYTES % (AUTO) 7.5 % (13-45); MEAN CORPUSCULAR HEMOGLOBIN 31.1 pg (27.0-33.4); MEAN CORPUSCULAR HGB CONC 34.2 g/dL (32.0-36.0); MEAN CORPUSCULAR VOLUME 91 fl (80-97); MONOCYTES % (AUTO) 4.7 % (3-13); PLATELET COUNT 148 10^3/uL (150-450); RED CELL DISTRIBUTION WIDTH 13.3 % (11.5-14.0); SEGMENTED NEUTROPHILS % (AUTO) 87.5 % (42-78); TOTAL CELLS COUNTED % (AUTO) 100 %; WHITE BLOOD COUNT 10.9 10^3/uL (4.0-10.5)
[2018-08-05 05:48] LABS: INTERNATIONAL RATION (INR) 1.02; PROTHROMBIN TIME 13.9 SEC (11.4-15.4)
[2018-08-05 06:05] LABS: ALANINE AMINOTRANSFERASE 43 U/L (21-72); ALBUMIN 3.5 g/dL (3.5-5.0); ALKALINE PHOSPHATASE 55 U/L (38-126); ANION GAP 6 (5-19); ASPARTATE AMINO TRANSFERASE 22 U/L (17-59); BILIRUBIN,DIRECT 0.3 mg/dL (0.0-0.4); BILIRUBIN,TOTAL 0.5 mg/dL (0.2-1.3); BLOOD UREA NITROGEN 13 mg/dL (7-20); CALCIUM 9.2 mg/dL (8.4-10.2); CARBON DIOXIDE 32 mmol/L (22-30); CHLORIDE 100 mmol/L (98-107); GLUCOSE 126 mg/dL (75-110); POTASSIUM 4.4 mmol/L (3.6-5.0); SODIUM 137.7 mmol/L (137-145); TOTAL PROTEIN 6.1 g/dL (6.3-8.2)
[2018-08-05] MEDS: ROFLUMILAST 500 MCG TABLET PO SCH (09:10)
[2018-08-05] MEDS: FAMOTIDINE 20 MG TABLET PO SCH (09:10)
[2018-08-05] MEDS: FLUTICASONE/UMECLIDIN/VILANTER 100-62.5-25 MCG/DOSE IH SCH (09:10)
[2018-08-05] MEDS: VENLAFAXINE HCL 75 MG CAP.SR.24H PO SCH ×2 (09:10→21:36)
[2018-08-05] MEDS: LORATADINE 10 MG TABLET PO SCH (09:10)
[2018-08-05] MEDS: LANSOPRAZOLE 30 MG TAB.RAP.DR PO SCH ×2 (09:10→17:20)
[2018-08-05] MEDS: ENOXAPARIN SODIUM INJ 40 MG/0.4 ML DISP.SYRIN SUBCUT SCH (09:10)
--- NOTE | 2018-08-05 19:42 | PDOC PROGRESS REPORT ---
Subjective Progress Note for:: 08/05/18 Subjective:: Patient is seen by the bedside, the skin rash is improved Reason For Visit: ACUTE COPD EXACERBATION,END STAGE COPD,ACUTE ON Physical Exam Vital Signs: Temp Pulse Resp BP Pulse Ox 97.9 F 75 17 149/84 H 99 08/05/18 15:31 08/05/18 16:03 08/05/18 16:03 08/05/18 15:31 08/05/18 16:03 Intake & Output 08/04/18 08/05/18 08/06/18 06:59 06:59 06:59 Intake Total 702 1084 1218 Output Total 800 1500 Balance 702 284 -282 Weight 63 kg 61.7 kg General appearance: PRESENT: no acute distress Eye exam: PRESENT: PERRLA Respiratory exam: PRESENT: wheezes Cardiovascular exam: PRESENT: +S1, +S2 GI/Abdominal exam: PRESENT: soft Neurological exam: PRESENT: alert Results Laboratory Results: 08/05/18 05:18 08/05/18 05:18 08/05/18 08/05/18 05:18 05:18 WBC 10.9 H RBC 4.30 L Hgb 13.4 L Hct 39.1 MCV 91 MCH 31.1 MCHC 34.2 RDW 13.3 Plt Count 148 L Seg Neutrophils % 87.5 H Lymphocytes % 7.5 L Monocytes % 4.7 Eosinophils % 0.1 Basophils % 0.2 Absolute Neutrophils 9.6 H Absolute Lymphocytes 0.8 Absolute Monocytes 0.5 Absolute Eosinophils 0.0 Absolute Basophils 0.0 Sodium 137.7 Potassium 4.4 Chloride 100 Carbon Dioxide 32 H Anion Gap 6 BUN 13 Creatinine 0.57 Est GFR ( Amer) > 60 Est GFR (Non-Af Amer) > 60 Glucose 126 H Calcium 9.2 Magnesium 2.2 Total Bilirubin 0.5 AST 22 ALT 43 Alkaline Phosphatase 55 Total Protein 6.1 L Albumin 3.5 08/03/18 00:13 Clean Catch Midstream Urine Culture - Final Mixed Urogenital [place] 08/02/18 08/02/18 08/03/18 22:00 22:00 03:50 Creatine Kinase 43 L 31 L CK-MB (CK-2) 2.94 Troponin I < 0.012 08/03/18 08/03/18 08/03/18 03:50 10:05 10:05 Creatine Kinase 26 L CK-MB (CK-2) 2.33 1.78 Troponin I < 0.012 < 0.012 Impressions: Chest X-Ray 08/02/18 00:00 IMPRESSION: Obstructive lung disease. No acute findings Assessment & Plan - Diagnosis (1) Acute hypercapnic respiratory failure Is this a current diagnosis for this admission?: Yes (2) COPD exacerbation Is this a current diagnosis for this admission?: Yes Plan: Discontinue Solu-Medrol, start prednisone (3) Hypersensitivity reaction Qualifiers: Encounter type: initial encounter Qualified Code(s): T78.40XA - Allergy, unspecified, initial encounter Is this a current diagnosis for this admission?: Yes
[2018-08-05] MEDS: MONTELUKAST SODIUM 10 MG TABLET PO SCH (21:36)
[2018-08-05] MEDS: PREDNISONE 20 MG TABLET PO SCH (21:36)
[2018-08-06] MEDS: IPRATROPIUM/ALBUTEROL 0.5-2.5 MG/3 ML AMPUL NEB SCH ×7 (00:04→23:37)
[2018-08-06] MEDS: GABAPENTIN 300 MG CAPSULE PO SCH ×3 (05:28→18:00)
[2018-08-06] MEDS: ROFLUMILAST 500 MCG TABLET PO SCH (09:22)
[2018-08-06] MEDS: PREDNISONE 20 MG TABLET PO SCH (09:22)
[2018-08-06] MEDS: ENOXAPARIN SODIUM INJ 40 MG/0.4 ML DISP.SYRIN SUBCUT SCH (09:22)
[2018-08-06] MEDS: VENLAFAXINE HCL 75 MG CAP.SR.24H PO SCH ×2 (09:22→22:00)
[2018-08-06] MEDS: FAMOTIDINE 20 MG TABLET PO SCH (09:22)
[2018-08-06] MEDS: LANSOPRAZOLE 30 MG TAB.RAP.DR PO SCH ×2 (09:22→18:00)
[2018-08-06] MEDS: LORATADINE 10 MG TABLET PO SCH (09:22)
[2018-08-06] MEDS: FLUTICASONE/UMECLIDIN/VILANTER 100-62.5-25 MCG/DOSE IH SCH (09:22)
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
[2018-08-06] MEDS: MONTELUKAST SODIUM 10 MG TABLET PO SCH (22:00)
[2018-08-06] MEDS: ACETAMINOPHEN 325 MG TABLET PO PRN (22:00)
[2018-08-07] MEDS: GABAPENTIN 300 MG CAPSULE PO SCH ×5 (01:16→23:02)
[2018-08-07] MEDS: IPRATROPIUM/ALBUTEROL 0.5-2.5 MG/3 ML AMPUL NEB SCH ×6 (03:49→23:06)
[2018-08-07] MEDS: LANSOPRAZOLE 30 MG TAB.RAP.DR PO SCH ×2 (10:08→17:08)
[2018-08-07] MEDS: PREDNISONE 20 MG TABLET PO SCH (10:08)
[2018-08-07] MEDS: FAMOTIDINE 20 MG TABLET PO SCH (10:08)
[2018-08-07] MEDS: FLUTICASONE/UMECLIDIN/VILANTER 100-62.5-25 MCG/DOSE IH SCH (10:08)
[2018-08-07] MEDS: ROFLUMILAST 500 MCG TABLET PO SCH (10:08)
[2018-08-07] MEDS: VENLAFAXINE HCL 75 MG CAP.SR.24H PO SCH ×2 (10:09→23:02)
[2018-08-07] MEDS: ENOXAPARIN SODIUM INJ 40 MG/0.4 ML DISP.SYRIN SUBCUT SCH (10:09)
[2018-08-07] MEDS: LORATADINE 10 MG TABLET PO SCH (10:09)
[2018-08-07] MEDS: ACETAMINOPHEN 325 MG TABLET PO PRN ×2 (10:12→15:47)
--- NOTE | 2018-08-07 14:04 | PDOC PROGRESS REPORT ---
Subjective Progress Note for:: 08/07/18 Subjective:: Complain of coughing spells with difficulty expectorating. No chest pain. No fever or chills. No nausea, vomiting or abdominal pain. Reason For Visit: ACUTE COPD EXACERBATION,END STAGE COPD,ACUTE ON Physical Exam Vital Signs: Temp Pulse Resp BP Pulse Ox 98.0 F 72 16 142/73 H 99 08/07/18 11:06 08/07/18 11:51 08/07/18 11:51 08/07/18 11:06 08/07/18 11:51 Intake & Output 08/06/18 08/07/18 08/08/18 06:59 06:59 06:59 Intake Total 1218 1348 1050 Output Total 1950 1000 Balance -158 841 5611 Weight 63.3 kg 66.5 kg General appearance: PRESENT: no acute distress - remainon supplemental oxygen via nasal cannula at 2L/min, well-developed, well-nourished Eye exam: PRESENT: conjunctiva pink, EOMI, PERRLA Ear exam: PRESENT: normal external ear exam Mouth exam: PRESENT: moist Respiratory exam: PRESENT: crackles - scattered, decreased breath sounds Cardiovascular exam: PRESENT: RRR. ABSENT: diastolic murmur, rubs, systolic murmur Vascular exam: ABSENT: pallor GI/Abdominal exam: PRESENT: normal bowel sounds, soft. ABSENT: distended, guarding, mass, organolmegaly, rebound, tenderness Extremities exam: ABSENT: pedal edema Musculoskeletal exam: PRESENT: normal inspection Neurological exam: PRESENT: alert, awake, oriented to person, oriented to place , oriented to time, oriented to situation, CN II-XII grossly intact. ABSENT: motor sensory deficit Psychiatric exam: PRESENT: appropriate affect, normal mood. ABSENT: homicidal ideation, suicidal ideation Skin exam: PRESENT: dry, intact, warm. ABSENT: cyanosis, rash Results Laboratory Results: 08/05/18 05:18 08/05/18 05:18 08/02/18 08/02/18 08/03/18 22:00 22:00 03:50 Creatine Kinase 43 L 31 L CK-MB (CK-2) 2.94 Troponin I < 0.012 08/03/18 08/03/18 08/03/18 03:50 10:05 10:05 Creatine Kinase 26 L CK-MB (CK-2) 2.33 1.78 Troponin I < 0.012 < 0.012 Impressions: Chest X-Ray 08/02/18 00:00 IMPRESSION: Obstructive lung disease. No acute findings Assessment & Plan - Diagnosis (1) Acute hypercapnic respiratory failure Is this a current diagnosis for this admission?: Yes Plan: Improving. Maintain on CPAP support while sleeping. Continue supplemental oxygen at 2L/min via nasal cannula. (2) COPD exacerbation Is this a current diagnosis for this admission?: Yes Plan: Maintain on current medication management. Start on Benzonatate 100 mg p.o tid and use of flutter at bedside to aide expectoration. - Time Time Spent with patient: 25-34 minutes Medications reviewed and adjusted accordingly: Yes Anticipated discharge: Home Within: Other - Inpatient Certification Based on my medical assessment, after consideration of the patient's comorbidities, presenting symptoms, or acuity I expect that the services needed warrant INPATIENT care.: Yes I certify that my determination is in accordance with my understanding of Medicare's requirements for reasonable and necessary INPATIENT services [42 CFR 412.3e].: Yes Medical Necessity: Need Close Monitoring Due to Risk of Patient Decompensation, Need For IV Fluids, Need For Continuous Telemetry Monitoring, Need for Nebulizer Therapy and Monitoring of Response, Risk of Complication if Not Cared For in Hospital Post Hospital Care: D/C [employer] Documentation - Plan Summary Plan Summary: See covering attending physician orders.
[2018-08-07] MEDS: BENZONATATE 100 MG CAPSULE PO SCH ×2 (15:47→23:02)
[2018-08-07] MEDS ORDERED: SENNOSIDES/DOCUSATE 8.6-50 MG 1 EACH TABLET PO ONE ×2 (16:30→17:00)
[2018-08-07] MEDS: MONTELUKAST SODIUM 10 MG TABLET PO SCH (23:02)
[2018-08-08] MEDS: IPRATROPIUM/ALBUTEROL 0.5-2.5 MG/3 ML AMPUL NEB SCH ×5 (04:15→20:16)
[2018-08-08] MEDS: BENZONATATE 100 MG CAPSULE PO SCH ×3 (05:47→22:00)
[2018-08-08] MEDS: GABAPENTIN 300 MG CAPSULE PO SCH ×3 (05:47→17:01)
[2018-08-08] MEDS: FLUTICASONE/UMECLIDIN/VILANTER 100-62.5-25 MCG/DOSE IH SCH (10:17)
[2018-08-08] MEDS: FAMOTIDINE 20 MG TABLET PO SCH (10:18)
[2018-08-08] MEDS: LANSOPRAZOLE 30 MG TAB.RAP.DR PO SCH ×2 (10:18→17:01)
[2018-08-08] MEDS: ROFLUMILAST 500 MCG TABLET PO SCH (10:18)
[2018-08-08] MEDS: PREDNISONE 20 MG TABLET PO SCH (10:18)
[2018-08-08] MEDS: VENLAFAXINE HCL 75 MG CAP.SR.24H PO SCH ×2 (10:18→22:00)
[2018-08-08] MEDS: LORATADINE 10 MG TABLET PO SCH (10:18)
[2018-08-08] MEDS: ENOXAPARIN SODIUM INJ 40 MG/0.4 ML DISP.SYRIN SUBCUT SCH (10:18)
[2018-08-08] MEDS: ACETAMINOPHEN 325 MG TABLET PO PRN (10:20)
--- NOTE | 2018-08-08 12:43 | PDOC PROGRESS REPORT ---
Subjective Progress Note for:: 08/08/18 Subjective:: Patient reported improvement in his coughing but expectoration remain a concern. Breathing is fairly better. No chest pain. No fever or chills. No nausea, vomiting or abdominal pain. Reason For Visit: ACUTE COPD EXACERBATION,END STAGE COPD,ACUTE ON Physical Exam Vital Signs: Temp Pulse Resp BP Pulse Ox 97.8 F 67 16 106/70 97 08/08/18 11:05 08/08/18 11:47 08/08/18 11:47 08/08/18 11:05 08/08/18 11:47 Intake & Output 08/07/18 08/08/18 08/09/18 06:59 06:59 06:59 Intake Total 1348 2215 877 Output Total 1000 Balance 348 2215 877 Weight 66.5 kg 65.3 kg Physical Exam: General appearance: PRESENT: no acute distress - remain on supplemental oxygen via nasal cannula at 2L/min Eye exam: PRESENT: conjunctiva pink, EOMI, PERRLA Ear exam: PRESENT: normal external ear exam Mouth exam: PRESENT: moist Respiratory exam: PRESENT: crackles - scattered, decreased breath sounds Cardiovascular exam: PRESENT: RRR. ABSENT: diastolic murmur, rubs, systolic murmur Vascular exam: ABSENT: pallor GI/Abdominal exam: PRESENT: normal bowel sounds, soft. ABSENT: distended, guarding, mass, organomegaly, rebound, tenderness Extremities exam: ABSENT: pedal edema Musculoskeletal exam: PRESENT: normal inspection Neurological exam: PRESENT: alert, awake, oriented to person, oriented to place , oriented to time, oriented to situation, CN II-XII grossly intact. ABSENT: motor sensory deficit Psychiatric exam: PRESENT: appropriate affect, normal mood. ABSENT: homicidal ideation, suicidal ideation Skin exam: PRESENT: dry, intact, warm. ABSENT: cyanosis, rash Results Laboratory Results: 08/05/18 05:18 08/05/18 05:18 08/02/18 08/02/18 08/03/18 22:00 22:00 03:50 Creatine Kinase 43 L 31 L CK-MB (CK-2) 2.94 Troponin I < 0.012 08/03/18 08/03/18 08/03/18 03:50 10:05 10:05 Creatine Kinase 26 L CK-MB (CK-2) 2.33 1.78 Troponin I < 0.012 < 0.012 Impressions: Chest X-Ray 08/02/18 00:00 IMPRESSION: Obstructive lung disease. No acute findings Assessment & Plan - Diagnosis (1) Acute hypercapnic respiratory failure Is this a current diagnosis for this admission?: Yes (2) COPD exacerbation Is this a current diagnosis for this admission?: Yes - Time Time Spent with patient: 25-34 minutes Medications reviewed and adjusted accordingly: Yes Anticipated discharge: Home Within: Other - Inpatient Certification Based on my medical assessment, after consideration of the patient's comorbidities, presenting symptoms, or acuity I expect that the services needed warrant INPATIENT care.: Yes I certify that my determination is in accordance with my understanding of Medicare's requirements for reasonable and necessary INPATIENT services [42 CFR 412.3e].: Yes Medical Necessity: Need Close Monitoring Due to Risk of Patient Decompensation, Need For IV Fluids, Need For Continuous Telemetry Monitoring, Need for Nebulizer Therapy and Monitoring of Response, Risk of Complication if Not Cared For in Hospital Post Hospital Care: D/C [employer] Documentation - Plan Summary Plan Summary: Continue current medication management. Encouraged use of bedside Flutter device to aide expectoration.
[2018-08-08] MEDS: MONTELUKAST SODIUM 10 MG TABLET PO SCH (22:00)
[2018-08-09] MEDS: IPRATROPIUM/ALBUTEROL 0.5-2.5 MG/3 ML AMPUL NEB SCH ×6 (00:14→20:16)
[2018-08-09] MEDS: GABAPENTIN 300 MG CAPSULE PO SCH ×4 (00:21→18:20)
[2018-08-09] MEDS: ACETAMINOPHEN 325 MG TABLET PO PRN (03:07)
[2018-08-09] MEDS: SIMETHICONE 80 MG TAB.CHEW PO PRN ×2 (05:12→18:28)
[2018-08-09] MEDS: BENZONATATE 100 MG CAPSULE PO SCH ×3 (05:14→21:41)
[2018-08-09] MEDS ORDERED: TRAMADOL HCL 50 MG TABLET PO PRN ×2 (06:50→09:00)
[2018-08-09] MEDS ORDERED: OXYCODONE-ACETAMINOPHEN 5-325 MG TABLET ONE (08:33)
[2018-08-09] MEDS: OXYCODONE-ACETAMINOPHEN 5-325 MG TABLET PO PRN ×4 (08:35→21:42)
--- NOTE | 2018-08-09 09:58 | RADIOLOGY REPORT (SQ) ---
EXAM DESCRIPTION: CT ABD/PELVIS NO ORAL OR IV COMPLETED DATE/TIME: 08/09/2018 9:33 am REASON FOR STUDY: kidney stones/severe sudden onset lt flank pain COMPARISON: None. TECHNIQUE: CT scan of the abdomen and pelvis performed without intravenous or oral contrast. Images reviewed with lung, soft tissue, and bone windows. Reconstructed coronal and sagittal MPR images revi ewed. All images stored on PACS. All CT scanners at this facility use dose modulation, iterative reconstruction, and/or weight based d osing when appropriate to reduce radiation dose to as low as reasonably achievable (ALARA). [facility]: Dose Right [facility]: CareDose [facility]: Dose Right [facility]: Teradose 4D [facility]: Smart [employer] RADIATION DOSE: CT Rad equipment meets quality standard of care and radiation dose reduction techniq ues were employed. CTDIvol: 3.8 mGy. DLP: 204 mGy-cm.mGy. LIMITATIONS: None. FINDINGS: LOWER CHEST: Bullous emphysematous changes in the lungs. In the left lower lobe, slightl y ill-defined nodular infiltrate. NON-CONTRASTED LIVER, SPLEEN, ADRENALS: Evaluation limited by lack of IV contrast. No identified sign ificant masses. PANCREAS: No masses. No peripancreatic inflammatory changes. GALLBLADDER: No identified stones by CT criteria. No inflammatory changes to suggest cholecystitis. RIGHT KIDNEY AND URETER: Intravascular calcifications. No suspicious masses. Assessment limited by lack of IV contrast. No hydronephrosis or hydroureter. LEFT KIDNEY AND URETER: No suspicious masses. Assessment limited by lack of IV contrast. No signifi cant calcifications. No hydronephrosis or hydroureter. AORTA AND RETROPERITONEUM: Atherosclerotic changes involving the abdominal aorta and branch vessels. The abdominal aorta is mildly ectatic in appearance. No retroperitoneal masses or adenopathy. BOWEL AND PERITONEAL CAVITY: Constipation. No obvious masses or inflammatory changes. No free fluid . APPENDIX: Normal. PELVIS, BLADDER, AND ABDOMINAL WALL:A 1.3 cm cluster of intraluminal calcifications along the base of the urinary bladder on the right. Bilateral small fat containing inguinal hernias, slightly larger on the left. The prostate gland grazyna sures 3.5 cm in diameter. No free fluid. Bladder normal. BONES: Mild compression deformity of the T12 vertebra, age is indeterminate. Bone island right femo ral head. OTHER: No other significant finding. IMPRESSION: 1. A cluster of intraluminal calcifications along the base of the urinary bladder on th e right. 2. No evidence of hydronephrosis. 3. Mild compression deformity T12 vertebra, age is indeterminate. Correlation suggested. 3. Focal nodular opacity in the left lower lobe, may be on the basis of atypical infections, inflamma tory/infectious changes. Correlation suggested. 4. Additional findings as above. COMMENT: Quality ID # [id number]: Final reports with documentation of one or more dose reduction techniques (e.g., Automated exposure control, adjustment of the mA and/or kV according to patient size, use of iterative reconstruction technique) TECHNICAL DOCUMENTATION: JOB ID: [id number] [email or web address]- All Rights Reserved Reading location - IP/workstation name: [email or web address]
[2018-08-09] MEDS: ROFLUMILAST 500 MCG TABLET PO SCH (10:28)
[2018-08-09] MEDS: FAMOTIDINE 20 MG TABLET PO SCH (10:29)
[2018-08-09] MEDS: LORATADINE 10 MG TABLET PO SCH (10:30)
[2018-08-09] MEDS: VENLAFAXINE HCL 75 MG CAP.SR.24H PO SCH ×2 (10:30→21:41)
[2018-08-09] MEDS: PREDNISONE 20 MG TABLET PO SCH (10:31)
[2018-08-09] MEDS: ENOXAPARIN SODIUM INJ 40 MG/0.4 ML DISP.SYRIN SUBCUT SCH (10:32)
[2018-08-09] MEDS: LANSOPRAZOLE 30 MG TAB.RAP.DR PO SCH ×2 (10:48→18:22)
[2018-08-09] MEDS: FLUTICASONE/UMECLIDIN/VILANTER 100-62.5-25 MCG/DOSE IH SCH (10:53)
[2018-08-09 12:07] LABS: BILIRUBIN,URINE NEGATIVE (NEGATIVE); COLOR,URINE YELLOW; GLUCOSE, URINE NEGATIVE (NEGATIVE); KETONES,URINE NEGATIVE (NEGATIVE); LEUKOCYTE ESTERASE,URINE NEGATIVE (NEGATIVE); NITRITE,URINE NEGATIVE (NEGATIVE); PROTEIN,URINE NEGATIVE (NEGATIVE); UROBILINOGEN,URINE NEGATIVE mg/dL (<2.0)
[2018-08-09 12:10] LABS: APPEARANCE,URINE CLEAR
[2018-08-09] MEDS: 1/2 NORMAL SALINE 1,000 ML IV PRN (14:38)
[2018-08-09] MEDS: ACYCLOVIR 800 MG TABLET PO SCH (20:09)
[2018-08-09] MEDS: MONTELUKAST SODIUM 10 MG TABLET PO SCH (21:41)
--- NOTE | 2018-08-09 21:45 | PDOC PROGRESS REPORT ---
Subjective Progress Note for:: 08/09/18 Subjective:: He complained of pain in the left flank, a CT scan of the abdomen and pelvis was negative for ureteric stone, there was a suggestion of stone in the urinary bladder, the urinalysis was negative there is no blood in the urine especially bland urine herpes zoster is a potential etiology of the left flank pain, there is no rash, it is not uncommon to have pain before the rash, he be treated empirically with antiviral, he is on Percocet every 4 hours as needed and tramadol, advised against using intravenous opioid for this patient because of his end-stage COPD Reason For Visit: ACUTE COPD EXACERBATION,END STAGE COPD,ACUTE ON Physical Exam Vital Signs: Temp Pulse Resp BP Pulse Ox 98.8 F 97 16 131/79 H 99 08/09/18 19:29 08/09/18 19:29 08/09/18 19:29 08/09/18 19:29 08/09/18 19:29 Intake & Output 08/08/18 08/09/18 08/10/18 06:59 06:59 06:59 Intake Total 2215 1887 885 Output Total 525 Balance 2215 1887 360 Weight 65.3 kg General appearance: PRESENT: no acute distress Eye exam: PRESENT: PERRLA Respiratory exam: PRESENT: clear to auscultation moy Cardiovascular exam: PRESENT: +S1, +S2 GI/Abdominal exam: PRESENT: soft Neurological exam: PRESENT: alert, CN II-XII grossly intact Results Laboratory Results: 08/05/18 05:18 08/05/18 05:18 08/09/18 11:01 Urine Color YELLOW Urine Appearance CLEAR Urine pH 6.0 Ur Specific [place] 1.020 Urine Protein NEGATIVE Urine Glucose (UA) NEGATIVE Urine Ketones NEGATIVE Urine Blood NEGATIVE Urine Nitrite NEGATIVE Ur Leukocyte Esterase NEGATIVE Urine WBC (Auto) 1 Urine RBC (Auto) 2 08/02/18 08/02/18 08/03/18 22:00 22:00 03:50 Creatine Kinase 43 L 31 L CK-MB (CK-2) 2.94 Troponin I < 0.012 08/03/18 08/03/18 08/03/18 03:50 10:05 10:05 Creatine Kinase 26 L CK-MB (CK-2) 2.33 1.78 Troponin I < 0.012 < 0.012 Impressions: Chest X-Ray 08/02/18 00:00 IMPRESSION: Obstructive lung disease. No acute findings Abdomen/Pelvis CT 08/09/18 08:29 IMPRESSION: 1. A cluster of intraluminal calcifications along the base of the urinary bladder on the right. 2. No evidence of hydronephrosis. 3. Mild compression deformity T12 vertebra, age is indeterminate. Correlation suggested. 3. Focal nodular opacity in the left lower lobe, may be on the basis of atypical infections, inflammatory/infectious changes. Correlation suggested. 4. Additional findings as above. Assessment & Plan - Diagnosis (1) Acute hypercapnic respiratory failure Is this a current diagnosis for this admission?: Yes (2) COPD exacerbation Is this a current diagnosis for this admission?: Yes (3) Hypersensitivity reaction Qualifiers: Encounter type: initial encounter Qualified Code(s): T78.40XA - Allergy, unspecified, initial encounter Is this a current diagnosis for this admission?: Yes (4) Left flank pain Is this a current diagnosis for this admission?: Yes Plan: The differential diagnosis include renal stone,herpes zooster
[2018-08-09] MEDS: KETOROLAC TROMETHAMINE INJ/PF 30 MG/1 ML SDV IV SCH (22:28)
[2018-08-10] MEDS: IPRATROPIUM/ALBUTEROL 0.5-2.5 MG/3 ML AMPUL NEB SCH ×6 (00:25→20:04)
[2018-08-10] MEDS: GABAPENTIN 300 MG CAPSULE PO SCH ×4 (00:30→17:26)
[2018-08-10] MEDS: OXYCODONE-ACETAMINOPHEN 5-325 MG TABLET PO PRN ×4 (03:06→20:06)
[2018-08-10] MEDS: KETOROLAC TROMETHAMINE INJ/PF 30 MG/1 ML SDV IV SCH ×3 (05:13→17:26)
[2018-08-10] MEDS: 1/2 NORMAL SALINE 1,000 ML IV PRN ×2 (05:14→21:40)
[2018-08-10] MEDS: BENZONATATE 100 MG CAPSULE PO SCH ×3 (05:14→21:42)
[2018-08-10] MEDS: ACYCLOVIR 800 MG TABLET PO SCH ×5 (07:25→20:03)
[2018-08-10] MEDS: VENLAFAXINE HCL 75 MG CAP.SR.24H PO SCH ×2 (09:01→21:42)
[2018-08-10] MEDS: LORATADINE 10 MG TABLET PO SCH (09:01)
[2018-08-10] MEDS: ROFLUMILAST 500 MCG TABLET PO SCH (09:01)
[2018-08-10] MEDS: FAMOTIDINE 20 MG TABLET PO SCH (09:01)
[2018-08-10] MEDS: ENOXAPARIN SODIUM INJ 40 MG/0.4 ML DISP.SYRIN SUBCUT SCH (09:01)
[2018-08-10] MEDS: LANSOPRAZOLE 30 MG TAB.RAP.DR PO SCH ×2 (09:06→17:26)
[2018-08-10] MEDS: FLUTICASONE/UMECLIDIN/VILANTER 100-62.5-25 MCG/DOSE IH SCH (09:06)
[2018-08-10] MEDS ORDERED: PREDNISONE 20 MG TABLET PO SCH (10:00)
[2018-08-10] MEDS ORDERED: BISACODYL 5 MG TABEC PO ONE (20:00)
[2018-08-10] MEDS ORDERED: LEVOFLOXACIN 750 MG TABLET PO SCH (20:00)
--- NOTE | 2018-08-10 20:46 | PDOC PROGRESS REPORT ---
Subjective Progress Note for:: 08/10/18 Subjective:: Patient was seen by the bedside, yesterday he had severe left flank abdominal pain, objective evaluation was negative for any acute pathology to Explaine the symptoms, presently empirically on anti-viral agent acyclovir for presumptive herpes zoster. He complained today of cough, productive of sputum, yellow color Reason For Visit: ACUTE COPD EXACERBATION,END STAGE COPD,ACUTE ON Physical Exam Vital Signs: Temp Pulse Resp BP Pulse Ox 97.8 F 102 H 14 120/97 H 99 08/10/18 15:35 08/10/18 15:53 08/10/18 15:53 08/10/18 15:35 08/10/18 15:53 Intake & Output 08/09/18 08/10/18 08/11/18 06:59 06:59 06:59 Intake Total 1887 2291 702 Output Total 525 600 Balance 1887 1766 102 Weight 61.8 kg General appearance: PRESENT: no acute distress Eye exam: PRESENT: PERRLA Respiratory exam: PRESENT: rhonchi Cardiovascular exam: PRESENT: +S1, +S2 GI/Abdominal exam: PRESENT: soft Neurological exam: PRESENT: alert Results Laboratory Results: 08/05/18 05:18 08/05/18 05:18 08/02/18 08/02/18 08/03/18 22:00 22:00 03:50 Creatine Kinase 43 L 31 L CK-MB (CK-2) 2.94 Troponin I < 0.012 08/03/18 08/03/18 08/03/18 03:50 10:05 10:05 Creatine Kinase 26 L CK-MB (CK-2) 2.33 1.78 Troponin I < 0.012 < 0.012 Impressions: Chest X-Ray 08/02/18 00:00 IMPRESSION: Obstructive lung disease. No acute findings Abdomen/Pelvis CT 08/09/18 08:29 IMPRESSION: 1. A cluster of intraluminal calcifications along the base of the urinary bladder on the right. 2. No evidence of hydronephrosis. 3. Mild compression deformity T12 vertebra, age is indeterminate. Correlation suggested. 3. Focal nodular opacity in the left lower lobe, may be on the basis of atypical infections, inflammatory/infectious changes. Correlation suggested. 4. Additional findings as above. Assessment & Plan - Diagnosis (1) Acute hypercapnic respiratory failure Is this a current diagnosis for this admission?: Yes (2) COPD exacerbation Is this a current diagnosis for this admission?: Yes Plan: He has acute bronchitis on a pre-existing COPD exacerbation, start p.o. Levaquin (3) Hypersensitivity reaction Qualifiers: Encounter type: initial encounter Qualified Code(s): T78.40XA - Allergy, unspecified, initial encounter Is this a current diagnosis for this admission?: Yes (4) Left flank pain Is this a current diagnosis for this admission?: Yes
[2018-08-10 21:40] LABS: HEMATOCRIT 47.2 % (37.9-51.0); HEMOGLOBIN 15.9 g/dL (13.5-17.0); MEAN CORPUSCULAR HEMOGLOBIN 31.3 pg (27.0-33.4); MEAN CORPUSCULAR HGB CONC 33.6 g/dL (32.0-36.0); MEAN CORPUSCULAR VOLUME 93 fl (80-97); PLATELET COUNT 238 10^3/uL (150-450); RED BLOOD COUNT 5.07 10^6/uL (4.35-5.55); RED CELL DISTRIBUTION WIDTH 14.1 % (11.5-14.0); WHITE BLOOD COUNT 22.2 10^3/uL (4.0-10.5)
[2018-08-10] MEDS: MONTELUKAST SODIUM 10 MG TABLET PO SCH (21:42)
[2018-08-10 22:00] LABS: ABSOLUTE LYMPHOCYTES# (MANUAL) 0.7 10^3/uL (0.5-4.7); ABSOLUTE MONOCYTES # (MANUAL) 0.2 10^3/uL (0.1-1.4); ABSOLUTE NEUTROPHILS# (MANUAL) 21.3 10^3/uL (1.7-8.2); ALANINE AMINOTRANSFERASE 82 U/L (21-72); ALBUMIN 3.4 g/dL (3.5-5.0); ALKALINE PHOSPHATASE 114 U/L (38-126); ANION GAP 13 (5-19); ASPARTATE AMINO TRANSFERASE 33 U/L (17-59); BAND NEUTROPHILS % (MANUAL) 8 % (3-5); BASOPHILS % (MANUAL) 0 % (0-2); BILIRUBIN,DIRECT 0.4 mg/dL (0.0-0.4); BILIRUBIN,TOTAL 0.6 mg/dL (0.2-1.3); BLOOD UREA NITROGEN 15 mg/dL (7-20); CALCIUM 10.2 mg/dL (8.4-10.2); CARBON DIOXIDE 24 mmol/L (22-30); CHLORIDE 100 mmol/L (98-107); EOSINOPHILS % (MANUAL) 0 % (0-6); GLUCOSE 175 mg/dL (75-110); LYMPHOCYTES % (MANUAL) 3 % (13-45); METAMYELOCYTES % (MANUAL) 1 % (0); MONOCYTES % (MANUAL) 1 % (3-13); POTASSIUM 5.2 mmol/L (3.6-5.0); SEGMENTED NEUTROPHILS % (MAN) 87 % (42-78); SODIUM 137.3 mmol/L (137-145); TOTAL CELLS COUNTED 100; TOTAL PROTEIN 6.3 g/dL (6.3-8.2)
[2018-08-10 22:02] LABS: ANISOCYTOSIS SLIGHT; PLATELET COMMENT ADEQUATE; TOXIC GRANULATION SLIGHT; TOXIC VACUOLATION PRESENT
[2018-08-11] MEDS: KETOROLAC TROMETHAMINE INJ/PF 30 MG/1 ML SDV IV SCH (00:10)
[2018-08-11] MEDS: GABAPENTIN 300 MG CAPSULE PO SCH (00:10)
[2018-08-11] MEDS: IPRATROPIUM/ALBUTEROL 0.5-2.5 MG/3 ML AMPUL NEB SCH ×3 (00:14→07:56)
[2018-08-11 04:40] LABS: HEMATOCRIT 41.2 % (37.9-51.0); HEMOGLOBIN 13.9 g/dL (13.5-17.0); MEAN CORPUSCULAR HEMOGLOBIN 30.9 pg (27.0-33.4); MEAN CORPUSCULAR HGB CONC 33.7 g/dL (32.0-36.0); MEAN CORPUSCULAR VOLUME 92 fl (80-97); PLATELET COUNT 232 10^3/uL (150-450); RED CELL DISTRIBUTION WIDTH 13.8 % (11.5-14.0); WHITE BLOOD COUNT 11.7 10^3/uL (4.0-10.5)
[2018-08-11 04:43] LABS: ARTERIAL BLOOD BASE EXCESS 4.2 mmol/L; ARTERIAL BLOOD FIO2 30%; ARTERIAL BLOOD H2CO3 1.42 mmol/L (1.05-1.35); ARTERIAL BLOOD HCO3 29.6 mmol/L (20-24); ARTERIAL BLOOD O2 SATURATION 95.4 % (94-98); ARTERIAL BLOOD PCO2 47.1 mmHg (35-45); ARTERIAL BLOOD PH 7.42 (7.35-7.45); ARTERIAL BLOOD PO2 76.4 mmHg (80-100)
[2018-08-11 05:12] LABS: ALANINE AMINOTRANSFERASE 58 U/L (21-72); ALBUMIN 2.7 g/dL (3.5-5.0); ALKALINE PHOSPHATASE 87 U/L (38-126); ANION GAP 7 (5-19); ASPARTATE AMINO TRANSFERASE 20 U/L (17-59); BILIRUBIN,DIRECT 0.5 mg/dL (0.0-0.4); BILIRUBIN,TOTAL 0.6 mg/dL (0.2-1.3); BLOOD UREA NITROGEN 18 mg/dL (7-20); CALCIUM 9.8 mg/dL (8.4-10.2); CARBON DIOXIDE 30 mmol/L (22-30); CHLORIDE 100 mmol/L (98-107); GLUCOSE 108 mg/dL (75-110); POTASSIUM 4.7 mmol/L (3.6-5.0); SODIUM 136.5 mmol/L (137-145); TOTAL PROTEIN 5.2 g/dL (6.3-8.2)
[2018-08-11 05:20] LABS: ABSOLUTE LYMPHOCYTES# (MANUAL) 0.8 10^3/uL (0.5-4.7); ABSOLUTE MONOCYTES # (MANUAL) 0.2 10^3/uL (0.1-1.4); ABSOLUTE NEUTROPHILS# (MANUAL) 10.5 10^3/uL (1.7-8.2); ANISOCYTOSIS SLIGHT; BASOPHILS % (MANUAL) 0 % (0-2); EOSINOPHILS % (MANUAL) 1 % (0-6); LYMPHOCYTES % (MANUAL) 7 % (13-45); METAMYELOCYTES % (MANUAL) 2 % (0); MONOCYTES % (MANUAL) 2 % (3-13); SEGMENTED NEUTROPHILS % (MAN) 67 % (42-78); TOTAL CELLS COUNTED 100; TOXIC GRANULATION SLIGHT
[2018-08-11 05:21] LABS: BAND NEUTROPHILS % (MANUAL) 21 % (3-5); PLATELET COMMENT ADEQUATE
[2018-08-11] MEDS ORDERED: LORAZEPAM INJ 2 MG/1 ML VIAL ONE (05:56)
--- NOTE | 2018-08-11 05:57 | RADIOLOGY REPORT (SQ) ---
EXAM DESCRIPTION: XR CHEST 1 VIEW COMPLETED DATE/TME: 08/11/2018 00:00 CLINICAL HISTORY: SOB with exertion COMPARISON: 08/02/2018 FINDINGS: Single frontal view of the chest. The cardiomediastinal silhouette has normal size and contour. No consolidation, pneumothorax, or pleural effusion. No acute osseous abnormalities. Hyperinflation. Leads overlie the chest. Upper abdominal soft tissues are unremarkable. IMPRESSION: 1. No acute pneumonic process identified. Obstructive lung disease.
[2018-08-11] MEDS ORDERED: CEFEPIME 2 GM/D5W RTU 2 GM/50 ML RTUPB IV SCH (06:00)
[2018-08-11] MEDS ORDERED: LORAZEPAM INJ 2 MG/1 ML VIAL IV ONE (06:30)
[2018-08-11] MEDS ORDERED: CEFEPIME 2 GM/D5W RTU 2 GM/50 ML RTUPB IV ONE (06:40)
[2018-08-11] MEDS ORDERED: NORMAL SALINE 1000 ML 1,000 ML IV PRN (06:55)
[2018-08-11 07:58] VITALS: BP 153/104
[2018-08-11] MEDS ORDERED: DILTIAZEM HCL INJ 25 MG/5 ML VIAL ONE (08:00)
[2018-08-11] MEDS ORDERED: DILTIAZEM HCL/D5W 125 MG/125 ML RTUINJ IV ONE (08:00)
[2018-08-11] MEDS ORDERED: PROPOFOL 1,000 MG/100 ML INFUS..BTL IV ONE (08:04)
[2018-08-11] MEDS ORDERED: ATROPINE SULFATE INJ 1 MG/10 ML DISP.SYRIN IV ONE (08:17)
[2018-08-11] MEDS ORDERED: PROPOFOL INJ 200 MG/20 ML VIAL IV ONE (08:54)
[2018-08-11] MEDS ORDERED: ADENOSINE INJ/PF 6 MG/2 ML SDV IV ONE (09:16)
[2018-08-11] MEDS ORDERED: EPINEPHRINE INJ 1 MG/10 ML DISP.SYRIN ONE (09:16)
[2018-08-11] MEDS ORDERED: SODIUM BICARBONATE 8.4% INJ 50 MEQ/50 ML DISP.SYRIN ONE (09:16)
[2018-08-11 09:22] LABS: HEMOGLOBIN 13.2 g/dL (13.5-17.0); MEAN CORPUSCULAR HEMOGLOBIN 31.1 pg (27.0-33.4); MEAN CORPUSCULAR HGB CONC 32.9 g/dL (32.0-36.0); MEAN CORPUSCULAR VOLUME 94 fl (80-97); PLATELET COUNT 207 10^3/uL (150-450); RED BLOOD COUNT 4.24 10^6/uL (4.35-5.55); RED CELL DISTRIBUTION WIDTH 14.2 % (11.5-14.0); WHITE BLOOD COUNT 13.5 10^3/uL (4.0-10.5)
[2018-08-11 09:28] LABS: ALANINE AMINOTRANSFERASE 54 U/L (21-72); ALBUMIN 3.2 g/dL (3.5-5.0); ALKALINE PHOSPHATASE 101 U/L (38-126); ANION GAP 12 (5-19); ASPARTATE AMINO TRANSFERASE 34 U/L (17-59); BILIRUBIN,DIRECT 0.7 mg/dL (0.0-0.4); BILIRUBIN,TOTAL 0.8 mg/dL (0.2-1.3); BLOOD UREA NITROGEN 19 mg/dL (7-20); CALCIUM 9.2 mg/dL (8.4-10.2); CARBON DIOXIDE 28 mmol/L (22-30); CHLORIDE 97 mmol/L (98-107); GLUCOSE 135 mg/dL (75-110); POTASSIUM 5.6 mmol/L (3.6-5.0); SODIUM 136.7 mmol/L (137-145); TOTAL PROTEIN 6.2 g/dL (6.3-8.2)
[2018-08-11 09:32] LABS: CREATINE KINASE MB 3.69 ng/mL (<4.55); TROPONIN I 0.082 ng/mL
[2018-08-11 10:08] LABS: ABSOLUTE LYMPHOCYTES# (MANUAL) 2.6 10^3/uL (0.5-4.7); ABSOLUTE MONOCYTES # (MANUAL) 0.4 10^3/uL (0.1-1.4); ABSOLUTE NEUTROPHILS# (MANUAL) 10.5 10^3/uL (1.7-8.2); BAND NEUTROPHILS % (MANUAL) 36 % (3-5); BASOPHILS % (MANUAL) 0 % (0-2); EOSINOPHILS % (MANUAL) 0 % (0-6); LYMPHOCYTES % (MANUAL) 19 % (13-45); METAMYELOCYTES % (MANUAL) 1 % (0); MONOCYTES % (MANUAL) 3 % (3-13); SEGMENTED NEUTROPHILS % (MAN) 41 % (42-78); TOTAL CELLS COUNTED 100; TOXIC GRANULATION 2+; TOXIC VACUOLATION PRESENT
[2018-08-11 10:09] LABS: PLATELET COMMENT ADEQUATE; POLYCHROMASIA SLIGHT; ROULEAUX SLIGHT
[2018-08-11] MEDS ORDERED: SUCCINYLCHOLINE CHLORIDE INJ 200 MG/10 ML VIAL ONE (12:26)
--- NOTE | 2018-08-11 14:29 | Death Summary ---
Summary Date : 08/18/18 Time of :: 08:52 Autopsy: No Resuscitation Status: Full Code - Final Diagnosis (1) Acute hypercapnic respiratory failure Is this a current diagnosis for this admission?: Yes (2) COPD exacerbation Is this a current diagnosis for this admission?: Yes (3) Hypersensitivity reaction Is this a current diagnosis for this admission?: Yes (4) Left flank pain Is this a current diagnosis for this admission?: Yes Hospital Course:: Patient with end-stage COPD, he was admitted for evaluation of acute COPD exacerbation, he was treated with IV Solu-Medrol, DuoNeb, antibiotic. Hospital course was complicated with left flank pain, kidney stone was suspected, CT scan of the abdomen and pelvis was done without contrast, this was negative for kidney stone. He was empirically treated for herpes zoster though there was no rash identified on the skin, despite this intervention patient's symptoms was not optimally controlled. He developed worsening respiratory status with increasing shortness of breath and increased work of breathing requiring noninvasive positive pressure ventilation, he was transferred to ICU where he coded, developed PEA, pulseless electrical activity. 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
--- NOTE | 2018-08-12 08:49 | Progress Note ---
Provider Note Provider Note: Mr. Solomon Gamble is a 58-year-old male who was found to have acute respiratory distress and imminent respiratory failure and a rapid response to his room in the hospital on the morning of 08/11/2018. He was moved to the ICU for further treatment but became very hypotensive and had no palpable pulse. A CODE BLUE was called and I responded to the CODE BLUE as the date hospitalist. The patient's primary physician Dr. Borges was not present and arrived only after the resuscitation effort had been discontinued. Upon my arrival to the [facility] in the ICU the patient had been intubated and was being placed on a ventilator. Chest compressions were in progress and the monitor showed a heart rate of 125-130. After the patient had been ventilated his oxygen saturation was noted to improve rapidly and was 100% within 1-2 minutes. Chest compressions were discontinued for a pulse check and the patient was found to have a pulse of 130 and a blood pressure of 121/87. His heart rate then gradually increased to the 150s and it was elected to try to treat his tachycardia; to that and he was given adenosine 6 mg and 5 mg of Cardizem both of which had no effect on the patient's tachycardia. Before an additional dose of 12 mg of adenosine could be given a sudden change occurred in the resuscitation process. The patient's O2 saturation dropped dramatically from 100% to less than 50% and a few seconds later the patient's blood pressure and pulse were lost. Chest compressions were reinstituted and standard ACLS protocols for treating PEA were employed as the monitor still showed a sinus tachycardia in the 140s and 150s. Patient was given epinephrine every 3-5 minutes and so received 1 dose of bicarbonate in the early stages of the second resuscitation effort. Resuscitation was continued for approximately 30 minutes and it became apparent that there was no response and no improvement whatsoever as the patient's O2 saturations continued to run in the 50s and no recovery of pulse or blood pressure occurred. At 0852 the resuscitation effort was discontinued and the patient was pronounced . Total time involved in a critical patient care was 32 minutes with total time involved for preparation of records etc. was 49 minutes. James Roger MD
[2018-08-12 10:33] LABS: PATH REVIEW PATHOLOGIST REVIEWED
[2018-08-12 10:33] LABS: PATH REVIEW PATHOLOGIST REVIEWED
== END 2018-08-11 12:00 | disposition expired | DRG 208 ==
LOC: ER 09:58 → EH 19:23 → 4W 08-03 09:18 → 3W 08-03 14:02 → ICU 08-11 07:47
PROVIDERS: ADMIT Internal Medicine; ATTEND Internal Medicine
PROC: 5A09557 Assistance with Respiratory Ventilation, Greater than 96 Consecutive Hours, Continuous Positive Airway Pressure (ICD-10-PCS; 2018-08-02)
PROC: 5A1935Z Respiratory Ventilation, Less than 24 Consecutive Hours (ICD-10-PCS; principal; 2018-08-11)
PROC: 0BH17EZ Insertion of Endotracheal Airway into Trachea, Via Natural or Artificial Opening (ICD-10-PCS; 2018-08-11)
DX: J96.02 Acute respiratory failure with hypercapnia (principal); J44.1 Chronic obstructive pulmonary disease with (acute) exacerbation; K21.9 Gastro-esophageal reflux disease without esophagitis; F32.9 Major depressive disorder, single episode, unspecified; F17.200 Nicotine dependence, unspecified, uncomplicated; R21 Rash and other nonspecific skin eruption; R10.32 Left lower quadrant pain; Z79.899 Other long term (current) drug therapy; Z99.81 Dependence on supplemental oxygen; I25.2 Old myocardial infarction
CPT/HCPCS: 31500; 36415; 36600; 71045; 71046; 74176; 80048; 80053; 80061; 80076; 80307; 81001; 82140; 82150; 82550; 82553; 82803; 82962; 83036; 83605; 83690; 83735; 83880; 84439; 84443; 84484; 85025; 85610; 85730; 87086; 92950; 94002; 94640; 94660; 96365; 96366; 96375; 99285; C1758; J0153; J0171; J0330; J0461; J0692; J1650; J1885; J2060; J2250; J2704; J2930; J3475; J3490; J7512; J7620